=== PATIENT | female | born 1975 | race Two or more races ===

== ENCOUNTER 2021-12-24 08:22 | Emergency (ER) | payer MEDICAID, OTHER ==
[~2021-12-24] VITALS: Ht 134.6 cm; Wt 67.1 kg
[2021-12-24 08:52] VITALS: BP 150/74
[2021-12-24] MEDS ORDERED: IBUP800T27 PO (10:06)
[2021-12-24] MEDS ORDERED: KETOROLAC TROMETH 60MG/2ML VIAL IM ONE (10:15)
== END 2021-12-24 10:48 | disposition home or self-care (01) ==
LOC: ER 08:22
DX: M17.12 Unilateral primary osteoarthritis, left knee (principal); Z79.1 Long term (current) use of non-steroidal anti-inflammatories (NSAID)
CPT/HCPCS: 73562; 96372; 99283; J1885

== ENCOUNTER 2024-02-11 22:15 | Emergency (ER) | payer MEDICAID ==
[~2024-02-11] VITALS: Ht 152.4 cm; Wt 68.9 kg
[~2024-02-11 22:15] MED LIST: IBUP-1456 PO
[2024-02-11 22:44] LABS: Urine Bacteria None Seen /hpf (None Seen)
[2024-02-11] MEDS: KETOROLAC TROMETH 60MG/2ML VIAL IM ONE (23:17)
[2024-02-11 23:22] VITALS: BP 159/66; PULSE 71; RESP 19; TEMP 98.8; O2SAT 99
[2024-02-11] MEDS: ONDANSETRON HCL 4 MG/2 ML VIAL IM ONE (23:25)
[2024-02-11 23:28] LABS: Basophils # (auto) 0.1 10 ^3/uL (0-0.2); Basophils % (auto) 0.8 % (0.0-2.0); Eosinophils # (auto) 0 10 ^3/uL (0-0.8); Hematocrit 34.7 % (36.0-46.0); Hemoglobin 11.7 g/dL (12.2-16.2); Lymphocytes # (auto) 3.2 10 ^3/uL (0.4-5.4); Lymphocytes % (auto) 21.2 % (10.0-50.0); Mean Corpuscular Hemoglobin 31.2 pg (28.0-32.0); Mean Corpuscular Hgb Conc. 33.8 g/dL (32.0-36.0); Mean Corpuscular Volume 92.6 fL (80.0-100.0); Monocytes % (auto) 6.9 % (0.0-12.0); Neutrophils # (auto) 10.8 10 ^3/uL (1.6-8.6); Neutrophils % (auto) 71.1 % (37.0-80.0); Red Blood Cells 3.75 10^6/uL (4.0-5.20); Red Cell Distribution Width 12.7 % (11.8-14.3); White Blood Cell 15.2 10^3/uL (4.4-10.8)
[2024-02-11 23:30] LABS: Alanine Aminotransferase 29 U/L (7-40); Albumin 4.5 g/dL (3.2-4.8); Alkaline Phosphatase 72 U/L (46-116); Anion Gap 9 (5-15); Aspartate Aminotransferase 20 U/L (13-40); BUN/Creatinine Ratio 17.1 (10.0-20.0); Bilirubin, Total 0.3 mg/dL (0.2-1.0); Blood Urea Nitrogen 12 mg/dL (9-23); Calcium 8.6 mg/dL (8.7-10.4); Carbon Dioxide 25 mmol/L (20-30); Chloride 107 mmol/L (98-107); Glucose 107 mg/dL (74-106); Lipase 37 U/L (12-53); Potassium 4.2 mmol/L (3.5-5.1); Sodium 141 mmol/L (136-145); Total Protein 6.9 g/dL (5.7-8.2)
[2024-02-11 23:54] LABS: Urine Blood Negative /uL (Negative); Urine Clarity Clear (Clear); Urine Color Light-Yellow (Yellow); Urine Protein, UAD Negative (Negative); Urine Specific Gravity 1.013 (1.001-1.035); Urine Urobilinogen Normal (Negative); Urine WBC <1 /hpf (0 - 5); Urine pH 6.5 (5.0-9.0)
[2024-02-12] MEDS ORDERED: PANT40TA2 PO (00:54)
== END 2024-02-12 01:15 | disposition home or self-care (01) ==
LOC: ER 22:15
DX: K29.70 Gastritis, unspecified, without bleeding (principal)
CPT/HCPCS: 36415; 74176; 80053; 81001; 83690; 85025; 96372; 99285; J1885; J2405

== ENCOUNTER 2024-04-16 07:38 | Inpatient (IN) | payer MEDICAID ==
[~2024-04-16] VITALS: Ht 152.4 cm; Wt 76.9 kg
[~2024-04-16 07:38] MED LIST changes: +PANT40TA2 PO
[2024-04-16 08:18] LABS: Urine Bacteria None Seen /hpf (None Seen)
[2024-04-16 08:24] LABS: Urine Blood TRACE /uL (Negative); Urine Clarity Clear (Clear); Urine Color Yellow (Yellow); Urine Protein, UAD Negative (Negative); Urine Specific Gravity 1.022 (1.001-1.035); Urine Urobilinogen Normal (Negative); Urine WBC <1 /hpf (0 - 5); Urine pH 5.5 (5.0-9.0)
[2024-04-16 08:52] LABS: Basophils # (auto) 0.1 10 ^3/uL (0-0.2); Basophils % (auto) 0.8 % (0.0-2.0); Eosinophils # (auto) 0 10 ^3/uL (0-0.8); Eosinophils % (auto) 0.2 % (0.0-7.0); Hematocrit 36.2 % (36.0-46.0); Hemoglobin 12.3 g/dL (12.2-16.2); Lymphocytes # (auto) 2.5 10 ^3/uL (0.4-5.4); Lymphocytes % (auto) 20.2 % (10.0-50.0); Mean Corpuscular Hemoglobin 30.3 pg (28.0-32.0); Mean Corpuscular Hgb Conc. 33.9 g/dL (32.0-36.0); Mean Corpuscular Volume 89.5 fL (80.0-100.0); Monocytes % (auto) 7.9 % (0.0-12.0); Neutrophils # (auto) 8.7 10 ^3/uL (1.6-8.6); Neutrophils % (auto) 70.9 % (37.0-80.0); Platelet Count (auto) 367 10^3/uL (140-450); Red Blood Cells 4.04 10^6/uL (4.0-5.20); Red Cell Distribution Width 12.5 % (11.8-14.3); White Blood Cell 12.2 10^3/uL (4.4-10.8)
[2024-04-16 09:00] LABS: Chloride 107 mmol/L (98-107); Sodium 139 mmol/L (136-145)
[2024-04-16 09:01] LABS: Anion Gap 8 (5-15); Calcium 9.2 mg/dL (8.7-10.4); Carbon Dioxide 24 mmol/L (20-31)
[2024-04-16 09:06] LABS: BUN/Creatinine Ratio 21.1 (10.0-20.0); Blood Urea Nitrogen 15 mg/dL (9-23); Glucose 82 mg/dL (74-106)
[2024-04-16] MEDS: SODIUM CHLORIDE 0.9% 1,000 ML IV ONE (09:15)
[2024-04-16 09:50] VITALS: PULSE 71; RESP 16; O2SAT 100
[2024-04-16] MEDS: LIDOCAINE VISCOUS 2% 15ML UD PO ONE (10:29)
[2024-04-16] MEDS: DONNATAL 5ml ORAL Elix (BELLADONNA ALK-PHENOBARB) PO ONE (10:29)
[2024-04-16] MEDS: MAALOX PLUS or MAALOX 30 ML ONE (10:30)
[2024-04-16] MEDS: MAALOX PLUS or MAALOX 30 ML PO ONE (10:30)
[2024-04-16] MEDS: DONNATAL 5ml ORAL Elix (BELLADONNA ALK-PHENOBARB) ONE (10:30)
[2024-04-16] MEDS: LIDOCAINE VISCOUS 2% 15ML UD ONE (10:30)
[2024-04-16] MEDS ORDERED: MORPHINE SULFATE INJ 2 MG/ml SYRG IV PRN ×2 (11:15→21:30)
[2024-04-16] MEDS ORDERED: hydrALAZINE HCL 20 MG/ML VL IV PRN (12:15)
[2024-04-16] MEDS: ONDANSETRON HCL 4 MG/2 ML VIAL IV PRN (12:16)
[2024-04-16] MEDS: HYDROcodone-ACET 5/325MG TAB PO PRN ×2 (12:16→21:29)
[2024-04-16] MEDS: PANTOPRAZOLE 40 MG/10 ML VIAL INJ IV SCH (12:16)
[2024-04-16] MEDS: LISINOPRIL 5 MG TAB PO SCH (13:36)
[2024-04-16 22:00] VITALS: PULSE 75; RESP 16; O2SAT 100
[2024-04-16 23:43] VITALS: BP 160/78; PULSE 78; RESP 17; TEMP 97.8; O2SAT 99
[2024-04-16 23:45] VITALS: BP 160/78; PULSE 78; RESP 17; TEMP 97.8; O2SAT 99
[2024-04-16] MEDS: hydrALAZINE HCL 20 MG/ML VL IV PRN (23:50)
[2024-04-17] VITALS (10 sets, daily range): BP systolic 114–155; BP diastolic 52–86; PULSE 65–98; RESP 17–20; TEMP 97.9–98.7; O2SAT 97–100
[2024-04-17] MEDS: ONDANSETRON HCL 4 MG/2 ML VIAL IV PRN (00:55)
[2024-04-17 07:18] LABS: Basophils # (auto) 0.1 10 ^3/uL (0-0.2); Basophils % (auto) 0.6 % (0.0-2.0); Eosinophils # (auto) 0 10 ^3/uL (0-0.8); Eosinophils % (auto) 0.6 % (0.0-7.0); Hematocrit 34.1 % (36.0-46.0); Hemoglobin 11.7 g/dL (12.2-16.2); Lymphocytes # (auto) 3.1 10 ^3/uL (0.4-5.4); Lymphocytes % (auto) 36.2 % (10.0-50.0); Mean Corpuscular Hgb Conc. 34.3 g/dL (32.0-36.0); Mean Corpuscular Volume 90.3 fL (80.0-100.0); Monocytes # (auto) 0.6 10 ^3/uL (0-1.3); Monocytes % (auto) 7.5 % (0.0-12.0); Neutrophils # (auto) 4.7 10 ^3/uL (1.6-8.6); Neutrophils % (auto) 55.1 % (37.0-80.0); Nucleated Red Blood Cells % 0.1 %; Platelet Count (auto) 317 10^3/uL (140-450); Red Blood Cells 3.77 10^6/uL (4.0-5.20); Red Cell Distribution Width 12.5 % (11.8-14.3); White Blood Cell 8.5 10^3/uL (4.4-10.8)
[2024-04-17 07:30] LABS: Anion Gap 6 (5-15); Carbon Dioxide 26 mmol/L (20-31); Chloride 107 mmol/L (98-107); Potassium 3.9 mmol/L (3.5-5.1); Sodium 139 mmol/L (136-145)
[2024-04-17 07:31] LABS: Calcium 9.2 mg/dL (8.7-10.4)
[2024-04-17 07:35] LABS: Glucose 86 mg/dL (74-106)
[2024-04-17 07:36] LABS: BUN/Creatinine Ratio 15.8 (10.0-20.0); Blood Urea Nitrogen 12 mg/dL (9-23)
[2024-04-17] MEDS: PANTOPRAZOLE 40 MG/10 ML VIAL INJ IV SCH (11:06)
[2024-04-17] MEDS: LISINOPRIL 5 MG TAB PO SCH (11:08)
[2024-04-17] MEDS: ACETAMINOPHEN 325 MG TAB PO PRN (12:28)
[2024-04-18 01:00] VITALS: BP_SYST 134; BP_SYST 166; BP_DIAS 67; BP_DIAS 71; PULSE 61; PULSE 77; RESP 20; TEMP 98.1; TEMP 98.3; O2SAT 100; O2SAT 97
[2024-04-18 05:00] VITALS: BP 109/57; PULSE 75; RESP 22; TEMP 97.7; O2SAT 100
[2024-04-18 07:38] LABS: Basophils # (auto) 0 10 ^3/uL (0-0.2); Basophils % (auto) 0.6 % (0.0-2.0); Eosinophils # (auto) 0.1 10 ^3/uL (0-0.8); Eosinophils % (auto) 0.9 % (0.0-7.0); Hemoglobin 12.4 g/dL (12.2-16.2); Lymphocytes # (auto) 2.7 10 ^3/uL (0.4-5.4); Lymphocytes % (auto) 40.3 % (10.0-50.0); Mean Corpuscular Hemoglobin 31.4 pg (28.0-32.0); Mean Corpuscular Hgb Conc. 34.5 g/dL (32.0-36.0); Mean Corpuscular Volume 90.9 fL (80.0-100.0); Monocytes # (auto) 0.5 10 ^3/uL (0-1.3); Monocytes % (auto) 7.3 % (0.0-12.0); Neutrophils # (auto) 3.4 10 ^3/uL (1.6-8.6); Neutrophils % (auto) 50.9 % (37.0-80.0); Nucleated Red Blood Cells % 0.1 %; Platelet Count (auto) 345 10^3/uL (140-450); Red Blood Cells 3.97 10^6/uL (4.0-5.20); Red Cell Distribution Width 12.3 % (11.8-14.3); White Blood Cell 6.8 10^3/uL (4.4-10.8)
[2024-04-18 07:49] LABS: Alanine Aminotransferase 21 U/L (7-40); Alkaline Phosphatase 80 U/L (46-116); Anion Gap 7 (5-15); BUN/Creatinine Ratio 12.2 (10.0-20.0); Blood Urea Nitrogen 10 mg/dL (9-23); Calcium 9.7 mg/dL (8.7-10.4); Carbon Dioxide 24 mmol/L (20-31); Chloride 109 mmol/L (98-107); Glucose 84 mg/dL (74-106); Potassium 3.9 mmol/L (3.5-5.1); Sodium 140 mmol/L (136-145)
[2024-04-18 07:50] LABS: Albumin 4.3 g/dL (3.2-4.8); Aspartate Aminotransferase 12 U/L (13-40); Bilirubin, Total 0.6 mg/dL (0.2-1.0); Total Protein 6.8 g/dL (5.7-8.2)
[2024-04-18 08:00] VITALS: PULSE 76; RESP 20; O2SAT 98
[2024-04-18] MEDS: LISINOPRIL 5 MG TAB PO SCH (08:38)
[2024-04-18 09:00] VITALS: BP 111/55; PULSE 52; RESP 16; TEMP 98.2; O2SAT 99
[2024-04-18] MEDS ORDERED: SUCR1TAB PO (14:00)
[2024-04-18] MEDS ORDERED: PANT40TA2 PO (14:00)
[2024-04-18 14:27] VITALS: BP 105/64; PULSE 87; RESP 16; TEMP 97.6; O2SAT 97
== END 2024-04-18 16:00 | disposition home or self-care (01) | DRG 241 ==
LOC: ER 07:38 → OVERFLOW 11:13 → CENTRAL 11:21
PROVIDERS: ADMIT Internal Medicine Geriatric Medicine; ATTEND Emergency Medicine
DX: K29.00 Acute gastritis without bleeding (principal); I10 Essential (primary) hypertension; I16.0 Hypertensive urgency; Z79.1 Long term (current) use of non-steroidal anti-inflammatories (NSAID); Z79.899 Other long term (current) drug therapy
CPT/HCPCS: 36415; 74176; 80048; 80053; 81001; 83690; 85025; 96374; G0378; J2405; J2470

== ENCOUNTER 2024-05-31 07:19 | Emergency (ER) | payer MEDICAID ==
[~2024-05-31] VITALS: Ht 152.4 cm; Wt 67.6 kg
[~2024-05-31 07:19] MED LIST changes: +SUCR1TAB PO
--- NOTE | 2024-05-31 07:51 | ED.PDOC ---
Musculoskeletal HPI Comments 48 Y F, presents to the ED with CC of right shoulder pain. Patient reports that she has been experiencing right shoulder pain and tingling which radiates down her right arm x1 wk. Patient relays that she has taken over the counter pain medications but nothing seems to help. Patient also reports that she has rash like hives on both hands which appeared on her hands on 05/29/24, which she believes are in association with her pain. Patient denies any chills, fever, cough and N/V/D. Chief Complaint: Upper Extremity Time Seen by MD: 07:20 Primary Care Provider: NONE Reviewed Notes: Nurses Notes, Medications, Allergies Allergies: Coded Allergies: NO KNOWN ALLERGIES (Unverified , 12/24/21) Home Meds Active Scripts Sucralfate (Sucralfate) 1 Gm Tab, 1 GM PO BID for 15 Days, #30 TAB Prov:ALMA DELIA SANTA RESIDENT 04/18/24 Pantoprazole Sodium Sesquihydr (Protonix) 40 Mg Tab, 40 MG PO DAILY for 30 Days, #30 TAB Prov:ALMA DELIA SANTA RESIDENT 04/18/24 Pantoprazole Sodium Sesquihydr (Protonix) 40 Mg Tab, 40 MG PO DAILY, #30 TAB Prov:ZENY HERNANDEZ MD 02/12/24 Ibuprofen (Ibuprofen) 800 Mg Tab, 1 TAB PO Q6HPRN PRN, #30 TAB 0 Refills Prov:RAYMUNDO MEJÍA 12/24/21 Information Source: Patient Mode of Arrival: Ambulatory Location: Right Extremity Location: Arm Timing: Weeks Severity: Mild Bear Weight: Limited Pain: Mild Onset of Symptoms: Spontaneous Symptoms: Pain Associated signs and symptoms: Shoulder pain, Arm pain, Wrist pain Past Medical History PAST MEDICAL HISTORY: Denies Surgical History: Denies all surgeries BOX STRAPPER History: Denies all BOX 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 Hx Family History Family History: Reviewed,noncontributory to illness, Unknown Social History Smoker: Non-Smoker Alcohol: Denies ETOH Use Drugs: Denies Drug Use Lives In: Home Constitutional: denies: chills, diaphoresis, fatigue, fever, malaise, sweats, weakness, others EENTM: denies: blurred vision, double vision, ear bleeding, ear discharge, ear drainage, ear pain, ear ringing, eye pain, eye redness, hearing loss, mouth pain, mouth swelling, nasal discharge, nose bleeding, nose congestion, nose pain, photophobia, tearing, throat pain, throat swelling, voice changes, others Respiratory: denies: cough, hemoptysis, orthopnea, SOB at rest, shortness of breath, SOB with excertion, stridor, wheezing, others Cardiovascular: denies: chest pain, dizzy spells, diaphoresis, Dyspnea on exertion, edema, irregular heart beat, left arm pain, lightheadedness, palpitations, PND, syncope, others Gastrointestinal: denies: abdomen distended, abdominal pain, blood streaked bowels, constipated, diarrhea, dysphagia, difficulty swallowing, hematemesis, melena, nausea, poor appetite, poor fluid intake, rectal bleeding, rectal pain, vomiting, others Genitourinary: denies: abnormal vagina bleeding, burning, dyspareunia, dysuria, flank pain, frequency, hematuria, incontinence, pain, , vagina discharge, urgency, others Neurological: denies: dizziness, fainting, headache, left sided numbness, left sided weakness, numbness, paresthesia, pre-existing deficit, right sided numbness, right sided weakness, seizure, speech problems, tingling, tremors, weakness, others Musculoskeletal: reports: neck pain, others (R shoulder pain); denies: back pain, gout, joint pain, joint swelling, muscle pain, muscle stiffness Integumetry: denies: bruises, change in color, change in hair/nails, dryness, laceration, lesions, lumps, rash, wounds, others Allergic/Immunocompromised: denies: Difficulty Healing, Frequent Infections, Hives, Itching, others Hematologic/Lymphatic: denies: anemia, blood clots, easy bleeding, easy bruising, swollen glands, others Endocrine: denies: excessive hunger, excessive sweating, excessive thirst, excessive urination, flushing, intolerance to cold, intolerance to heat, unexplained weight gain, unexplained weight loss, others Psychiatric: denies: anxiety, bipolar disorder, depression, hopeless, panic disorder, schizophrenia, sleepless, suicidal, others All Other Systems: Reviewed and Negative Physical Exam General Appearance: No Apparent Distress, Normal HEENT: Normal ENT Inspection, Pharynx Normal, TMs Normal Neck: Full Range of Motion, Non-Tender, Normal, Normal Inspection Respiratory: Chest Non-Tender, Lungs Clear, No Accessory Muscle Use, No Respiratory Distress, Normal Breath Sounds Cardiovascular: No Edema, No JVD, No Murmur, No Gallop, Normal Peripheral Pulses, Regular Rate/Rhythm Breast Exam: Deferred Gastrointestinal: No Organomegaly, Non Tender, No Pulsatile Mass, Normal Bowel Sounds, Soft Genitalia: Deferred Pelvic: Deferred Rectal: Deferred Extremities: No calf tenderness, Normal capillary refill, Normal inspection, Normal range of motion, Non-tender, No pedal edema Musculoskeletal : Location: Right Extremity Location: Shoulder Apperance: Normal, Other (No focal tenderness to palpation, no crepitus, strength intact.) Neurologic: Alert, animal geneticist II-XII nml as Tested, No Motor Deficits, Normal Affect, Normal Mood, No Sensory Deficits Cerebellar Function: Normal Reflexes: Normal Skin: Dry, Normal Color, Warm Lymphatic: No Adenopathy Was a procedure done? Was a procedure done?: No Differential Diagnosis EXT Differential Diagnosis: Sprain, Contusion, Strain X-Ray, Labs, Meds, VS Vital Signs Date Time Temp Pulse Resp B/P (MAP) Pulse Ox O2 Delivery O2 Flow Rate FiO2 05/31/24 07:34 98.3 99 18 158/57 (90) 100 Rt Shoulder XR: There is no evidence of acute fracture or dislocation. The visualized joint space is well maintained. The alignment is anatomical. There is no radiopaque foreign body. C-Spine XR: FINDINGS: The cervical vertebral alignment is normal. The predental space is normal. The intervertebral disc spaces are well-maintained. No significant facet arthropathy is noted. No acute fracture, vertebral compression deformity or aggressive osseous lesions. The imaged lung apices are unremarkable. IMPRESSION: No acute fracture. Images Reviewed?: Images reviewed and evaluated by me Time of 1ST Reevaluation: 08:20 Reevaluation 1ST: Unchanged Patient Education/Counseling: Diagnosis, Treatment Family Education/Counseling: No Family Present Departure 1 Departure Time of Disposition: 09:49 Impression: Primary Impression: Right shoulder pain Disposition: 01 HOME / SELF CARE / HOMELESS Condition: Stable Discharged With: Self Critical Care Note Critical Care Time?: No Stability Stability form required: No Heart Score Heart Score: Heart Score Response (Comments) Value History N/A 0 EKG N/A 0 Age N/A 0 Risk Factors N/A 0 Troponin N/A 0 Total 0 I personally scribed for HENRY TRUJILLO MD ([email or web address]) on 05/31/24 at 07:51. Electronically submitted by Maribel Guerra ([email or web address]). I personally scribed for HENRY TRUJILLO MD ([email or web address]) on 05/31/24 at 08:43. Electronically submitted by Jose Mckinney ([email or web address]). HENRY TRUJILLO MD May 31, 2024 07:51
--- NOTE | 2024-05-31 08:28 | DVH ---
INDICATION: RIGHT ARM PAIN COMPARISON: None TECHNIQUE: 3 views of the cervical spine were obtained. FINDINGS: The cervical vertebral alignment is normal. The predental space is normal. The intervertebral disc spaces are well-maintained. No significant facet arthropathy is noted. No acute fracture, vertebral compression deformity or aggressive osseous lesions. The imaged lung apices are unremarkable. IMPRESSION: No acute fracture.
--- NOTE | 2024-05-31 08:29 | DVH ---
CLINICAL INDICATION: r arm pain and numbness TECHNIQUE: XY R SHOULDER 2+ VIEW XRAY Comparison: None FINDINGS/IMPRESSION: There is no evidence of acute fracture or dislocation. The visualized joint space is well maintained. The alignment is anatomical. There is no radiopaque foreign body.
[2024-05-31 10:01] VITALS: BP 147/84; PULSE 83; RESP 18; TEMP 98; O2SAT 100
== END 2024-05-31 10:00 | disposition home or self-care (01) ==
LOC: ER 07:19
DX: M25.511 Pain in right shoulder (principal); Z79.899 Other long term (current) drug therapy
CPT/HCPCS: 72040; 73030

== ENCOUNTER 2024-06-05 07:39 | Emergency (ER) | payer MEDICAID ==
[~2024-06-05] VITALS: Ht 152.4 cm; Wt 67.3 kg
[2024-06-05 08:04] VITALS: BP 174/103; PULSE 100; RESP 16; TEMP 98.3; O2SAT 98
--- NOTE | 2024-06-05 08:30 | ED.PDOC ---
History of Present Illness(SKN HPI Comments 48-year-old female with a history of hypertension presents with a chief complaint of a skin rash to the bilateral upper extremities x2 weeks. Onset started on the dorsal aspect of the right hand and patient reports rash has a scended up the arm and onto the left upper extremities well. Symptoms associated with itchiness and dryness. Has tried [id number] Benadryl with minimal improvement. Up-to-date on vaccines Denies ever having this before Patient denies any fever, cough, difficulty swallowing, or shortness of breath Denies fever chills night sweats nausea vomiting diarrhea Denies persistent loss of appetite nor unintentional weight loss over the past 3 months Denies history of STI Denies cough and cold-like symptoms Denies recent travel Denies sick contact with similar rash Denies new topical creams/lotions/shampoos/detergents Denies noticing any insects Denies bruising bleeding anywhere Denies chronic skin issues or family history of skin issues Chief Complaint: Rash Time Seen by MD: 07:55 Primary Care Provider: none History of Present Illness: Nurses Notes, Medications, Allergies Allergies: Coded Allergies: NO KNOWN ALLERGIES (Unverified , 12/24/21) Home Meds Active Scripts Triamcinolone Acetonide (Triamcinolone Acetonide) 0.1 % Cre, 1 APPLIC EX DAILY for 5 Days, #60 CRE 0 Refills Prov:JOSSUE SHIRLEY NP 06/05/24 Prednisone (Prednisone) 20 Mg Tab, 40 MG PO DAILY for 5 Days, #10 TAB 0 Refills Prov:JOSSUE SHIRLEY NP 06/05/24 Sucralfate (Sucralfate) 1 Gm Tab, 1 GM PO BID for 15 Days, #30 TAB Prov:ALMA DELIA SANTA RESIDENT 04/18/24 Pantoprazole Sodium Sesquihydr (Protonix) 40 Mg Tab, 40 MG PO DAILY for 30 Days, #30 TAB Prov:ALMA DELIA SANTA RESIDENT 04/18/24 Pantoprazole Sodium Sesquihydr (Protonix) 40 Mg Tab, 40 MG PO DAILY, #30 TAB Prov:ZENY HERNANDEZ MD 02/12/24 Ibuprofen (Ibuprofen) 800 Mg Tab, 1 TAB PO Q6HPRN PRN, #30 TAB 0 Refills Prov:RAYMUNDO MEJÍA 12/24/21 Information Source: Patient Mode of Arrival: Ambulatory Past Medical History PAST MEDICAL HISTORY: Denies Surgical History: Denies all surgeries LABOUR MARKET ECONOMIST History: Denies all LABOUR MARKET ECONOMIST Hx Family History Family History: Reviewed,noncontributory to illness, Unknown Social History Smoker: Non-Smoker Alcohol: Denies ETOH Use Drugs: Denies Drug Use Lives In: Home All Other Systems: Reviewed and Negative (Per HPI) Physical Exam General Appearance: No Apparent Distress, Normal HEENT: Normal ENT Inspection, Pharynx Normal, TMs Normal Neck: Full Range of Motion, Non-Tender, Normal, Normal Inspection Respiratory: Chest Non-Tender, Lungs Clear, No Accessory Muscle Use, No Respiratory Distress, Normal Breath Sounds Cardiovascular: No Edema, No JVD, No Murmur, No Gallop, Normal Peripheral Pulses, Regular Rate/Rhythm Breast Exam: Deferred Gastrointestinal: No Organomegaly, Non Tender, No Pulsatile Mass, Normal Bowel Sounds, Soft Genitalia: Deferred Pelvic: Deferred Rectal: Deferred Extremities: No calf tenderness, Normal capillary refill, Normal inspection, Normal range of motion, Non-tender, No pedal edema Musculoskeletal : Apperance: Normal Neurologic: Alert, student counsellor II-XII nml as Tested, No Motor Deficits, Normal Affect, Normal Mood, No Sensory Deficits Cerebellar Function: Normal Reflexes: Normal Skin: Dry, Normal Color, Warm Lymphatic: No Adenopathy Was a procedure done? Was a procedure done?: No Images 1 - Erythematous papular rash. No swelling to palpation. No crepitus on palpation. Differential Diagnosis (INTG) Differential Diagnosis: Urticaria X-Ray, Labs, Meds, VS Vital Signs Date Time Temp Pulse Resp B/P (MAP) Pulse Ox O2 Delivery O2 Flow Rate FiO2 06/05/24 08:04 98.3 100 16 174/103 (126) 98 98.3 06/05/24 08:04 100 16 98 Room Air 06/05/24 07:51 98.3 100 16 174/103 (126) 98 Lab Test 06/05/24 08:49 Range/Units White Blood Count 11.6 H 4.4-10.8 10^3/uL Red Blood Count 4.07 4.0-5.20 10^6/uL Hemoglobin 12.2 12.2-16.2 g/dL Hematocrit 36.6 36.0-46.0 % Mean Corpuscular Volume 89.9 80.0-100.0 fL Mean Corpuscular Hemoglobin 29.9 28.0-32.0 pg Mean Corpuscular Hemoglobin Concent 33.3 32.0-36.0 g/dL Red Cell Distribution Width 12.9 11.8-14.3 % Platelet Count 332 140-450 10^3/uL Mean Platelet Volume 8.5 6.9-10.8 fL Neutrophils (%) (Auto) 76.6 37.0-80.0 % Lymphocytes (%) (Auto) 14.2 10.0-50.0 % Monocytes (%) (Auto) 8.1 0.0-12.0 % Eosinophils (%) (Auto) 0.5 0.0-7.0 % Basophils (%) (Auto) 0.6 0.0-2.0 % Neutrophils # (Auto) 8.9 H 1.6-8.6 10 ^3/uL Lymphocytes # (Auto) 1.7 0.4-5.4 10 ^3/uL Monocytes # (Auto) 0.9 0-1.3 10 ^3/uL Eosinophils # (Auto) 0.1 0-0.8 10 ^3/uL Basophils # (Auto) 0.1 0-0.2 10 ^3/uL Nucleated Red Blood Cells 0.1 % Sodium Level 141 136-145 mmol/L Potassium Level 4.0 3.5-5.1 mmol/L Chloride Level 108 H 98-107 mmol/L Carbon Dioxide Level 23 20-31 mmol/L Anion Gap 10 5-15 Blood Urea Nitrogen 9 9-23 mg/dL Creatinine 0.71 0.550-1.02 mg/dL Glomerular Filtration Rate Calc 106 >90 mL/min BUN/Creatinine Ratio 12.7 10.0-20.0 Serum Glucose 84 74-106 mg/dL Calcium Level 9.4 8.7-10.4 mg/dL X-Ray, Labs, Meds, VS Comment This is a pleasant 48-year-old female with a history of hypertension that presents with a chief complaint of a skin rash to the bilateral upper extremities x2 weeks. After review of systems physical examination, patient is nontoxic non ill-appearing. Rash is suggestive of urticaria. Differentials considered but not limited to chronic urticaria, contact dermatitis, dermatitis, shingles Labs ordered to rule out serious pathology. On reevaluation, patient had symptomatic improvement. Patient is stable for discharge at this time. External notes reviewed. Test results and diagnostic imaging interpreted. All diagnostic findings, discharge care, education and instructions provided Follow-up with PCP in 2 to 3 days Patient verbalized understanding and agreed to treatment plan Vital signs stable, afebrile, no acute distress noted Patient ambulatory with strong steady gait Advised to return precautions for any new or worsening symptoms, return to ER immediately for re-evaluation Patient is aware that the purpose of this visit was for an acute medical emergency requiring emergent stabilization. Chronic conditions, including malignancies have not been ruled out. Patient is instructed to follow up with PCP as directed and discharge instructions for continued care and workup. If unable to arrange follow-up, patient is to return to the emergency department for reassessment. Patient (parent or legal guardian if applicable) was given verbal and written discharge instructions and acknowledges understanding. Time of 1ST Reevaluation: 08:29 Reevaluation 1ST: Improved Patient Education/Counseling: Diagnosis, Treatment Family Education/Counseling: Diagnosis, Treatment Departure 1 Departure Time of Disposition: 10:08 Impression: Primary Impression: Dermatitis Additional Impression: Acute urticaria Disposition: HOME / SELF CARE / HOMELESS Condition: Stable e-Prescriptions Triamcinolone Acetonide (Triamcinolone Acetonide) 0.1 % Cre 1 APPLIC EX DAILY for 5 Days, #60 CRE 0 Refills Prov: JOSSUE SHIRLEY NP 06/05/24 Prednisone (Prednisone) 20 Mg Tab 40 MG PO DAILY for 5 Days, #10 TAB 0 Refills Prov: JOSSUE SHIRLEY NP 06/05/24 Discharged With: Self Critical Care Note Critical Care Time?: No Stability Stability form required: No Heart Score Heart Score: Heart Score Response (Comments) Value History N/A 0 EKG N/A 0 Age N/A 0 Risk Factors N/A 0 Troponin N/A 0 Total 0 JOSSUE SHIRLEY NP Jun 05, 2024 08:30
[2024-06-05 09:45] LABS: Basophils # (auto) 0.1 10 ^3/uL (0-0.2); Basophils % (auto) 0.6 % (0.0-2.0); Eosinophils # (auto) 0.1 10 ^3/uL (0-0.8); Eosinophils % (auto) 0.5 % (0.0-7.0); Hematocrit 36.6 % (36.0-46.0); Hemoglobin 12.2 g/dL (12.2-16.2); Lymphocytes # (auto) 1.7 10 ^3/uL (0.4-5.4); Lymphocytes % (auto) 14.2 % (10.0-50.0); Mean Corpuscular Hemoglobin 29.9 pg (28.0-32.0); Mean Corpuscular Hgb Conc. 33.3 g/dL (32.0-36.0); Mean Corpuscular Volume 89.9 fL (80.0-100.0); Monocytes # (auto) 0.9 10 ^3/uL (0-1.3); Monocytes % (auto) 8.1 % (0.0-12.0); Neutrophils # (auto) 8.9 10 ^3/uL (1.6-8.6); Neutrophils % (auto) 76.6 % (37.0-80.0); Nucleated Red Blood Cells % 0.1 %; Platelet Count (auto) 332 10^3/uL (140-450); Red Blood Cells 4.07 10^6/uL (4.0-5.20); Red Cell Distribution Width 12.9 % (11.8-14.3); White Blood Cell 11.6 10^3/uL (4.4-10.8)
[2024-06-05 09:49] LABS: Sodium 141 mmol/L (136-145)
[2024-06-05 09:50] LABS: Anion Gap 10 (5-15); Calcium 9.4 mg/dL (8.7-10.4); Carbon Dioxide 23 mmol/L (20-31)
[2024-06-05 09:55] LABS: BUN/Creatinine Ratio 12.7 (10.0-20.0); Blood Urea Nitrogen 9 mg/dL (9-23); Glucose 84 mg/dL (74-106)
[2024-06-05 09:58] LABS: Chloride 108 mmol/L (98-107)
[2024-06-05] MEDS ORDERED: PRED20TA2 PO (10:09)
[2024-06-05] MEDS ORDERED: TRIO1TP EX (10:09)
== END 2024-06-05 10:09 | disposition home or self-care (01) ==
LOC: ER 07:39
DX: L50.9 Urticaria, unspecified (principal); L30.9 Dermatitis, unspecified; I10 Essential (primary) hypertension; Z79.52 Long term (current) use of systemic steroids; Z79.899 Other long term (current) drug therapy
CPT/HCPCS: 36415; 80048; 85025

== ENCOUNTER → 2024-07-19 | Outpatient (CLI) | payer MEDICAID ==
[~2024-07-19] MED LIST changes: +PRED20TA2 PO; +TRIO1TP EX
[2024-07-19 10:16] LABS: Urine Bacteria None Seen /hpf (None Seen)
[2024-07-19 11:21] LABS: Basophils # (auto) 0.1 10 ^3/uL (0-0.2); Basophils % (auto) 0.8 % (0.0-2.0); Eosinophils # (auto) 0 10 ^3/uL (0-0.8); Eosinophils % (auto) 0.5 % (0.0-7.0); Hematocrit 34.3 % (36.0-46.0); Hemoglobin 11.9 g/dL (12.2-16.2); Lymphocytes # (auto) 2.7 10 ^3/uL (0.4-5.4); Lymphocytes % (auto) 39.4 % (10.0-50.0); Mean Corpuscular Hemoglobin 30.8 pg (28.0-32.0); Mean Corpuscular Hgb Conc. 34.8 g/dL (32.0-36.0); Mean Corpuscular Volume 88.6 fL (80.0-100.0); Monocytes # (auto) 0.6 10 ^3/uL (0-1.3); Monocytes % (auto) 8.6 % (0.0-12.0); Neutrophils # (auto) 3.5 10 ^3/uL (1.6-8.6); Neutrophils % (auto) 50.7 % (37.0-80.0); Nucleated Red Blood Cells % 0.1 %; Platelet Count (auto) 319 10^3/uL (140-450); Red Blood Cells 3.87 10^6/uL (4.0-5.20); Red Cell Distribution Width 13.2 % (11.8-14.3); White Blood Cell 6.9 10^3/uL (4.4-10.8)
[2024-07-19 11:28] LABS: % Iron Saturation 32.6 % (15-50)
[2024-07-19 11:30] LABS: Erythrocyte Sedimentation Rate 12 mm/hr (0-20)
[2024-07-19 11:36] LABS: Thyroid Stimulating Hormone 1.47 uIU/mL (0.55-4.78)
[2024-07-19 11:56] LABS: Urine Blood Negative /uL (Negative); Urine Clarity Clear (Clear); Urine Color Light-Yellow (Yellow); Urine Hyaline Cast FEW /lpf (0 - 2); Urine Mucus FEW (None Seen); Urine Protein, UAD Negative (Negative); Urine Specific Gravity 1.012 (1.001-1.035); Urine Squamous Epithelial Cell FEW /hpf (<5); Urine Urobilinogen Normal (Negative); Urine WBC < 1 /HPF (0-5); Urine pH 6.5 (5.0-9.0)
[2024-07-19 12:01] LABS: CRP High Sensitivity 0.09 mg/dL (<1.0)
[2024-07-19 12:35] LABS: Amphetamine Screen, Urine Neg (NEGATIVE); Barbiturate Scree,Urine Neg (NEGATIVE); Benzodiazephine Screen, Urine Neg (NEGATIVE); Cannabinoid Screen, Urine Neg (NEGATIVE); Cocaine Screen, Urine Neg (NEGATIVE); Opiate Scree,Urine Neg (NEGATIVE); Phencyclidine Screen, Urine Neg (NEGATIVE)
[2024-07-20 08:06] LABS: RPR Non Reactive (Non Reactive); Thyroid Peroxidase (TPO) Ab 16 IU/mL (0-34)
[2024-07-20 11:07] LABS: Anti-Nuclear Antibody Direct Negative (Negative); Anti-dsDNA Antibody <1 IU/mL (0-9); Antiscleroderma-70 Antibody <0.2 AI (0.0-0.9); Complement C3 138 mg/dL (82-167); RNP Antibody <0.2 AI (0.0-0.9); Rheumatoid Arthritis Factor <10.0 IU/mL (<14.0); Sjogren's Anti-SS-A Antibody <0.2 AI (0.0-0.9); Sjogren's Anti-SS-B Antibody <0.2 AI (0.0-0.9); Smith Antibody <0.2 AI (0.0-0.9)
[2024-07-21 09:49] LABS: Hepatitis A Ab IgM Negative; Hepatitis A Total Antibody Positive (Negative); Hepatitis B Core IgM Negative (Negative); Hepatitis B Core Total AB Negative (Negative); Hepatitis B Surface Antibody Negative (Negative); Hepatitis B Surface Antigen Negative (Negative); Hepatitis C Antibody Negative (Negative)
[2024-07-21 11:06] LABS: Chlamydia Trachomatis, NAA Negative (Negative); Neisseria gonorrhoeae, NAA Negative (Negative)
[2024-07-21 13:06] LABS: Actin (Smooth Muscle) Antibody 6 Units (0-19); Mitochondrial (M2) Antibody <20.0 Units (0.0-20.0)
[2024-07-22 03:06] LABS: Aldolase 5.6 U/L (3.3-10.3)
[2024-07-22 10:06] LABS: Antiparietal Cell Antibody 11.1 Units (0.0-20.0)
== END | disposition home or self-care (01) ==
LOC: LAB 09:50
PROVIDERS: ATTEND Internal Medicine
DX: I10 Essential (primary) hypertension (principal); K29.70 Gastritis, unspecified, without bleeding; R63.4 Abnormal weight loss; R21 Rash and other nonspecific skin eruption
CPT/HCPCS: 36415; 80061; 80074; 80307; 81001; 82085; 82306; 82550; 82607; 83036; 83540; 83550; 83615; 83735; 84443; 85025; 85652; 86141; 86160; 86225; 86235; 86376; 86431; 86592; 86703; 86704; 86706; 86708; 86803; 87340

== ENCOUNTER 2024-08-06 20:03 | Emergency (ER) | payer MEDICAID ==
[~2024-08-06] VITALS: Ht 152.4 cm; Wt 67.6 kg
--- NOTE | 2024-08-06 20:36 | ED.PDOC ---
GI ASSESSMENT HPI Comments 48-year-old female who came to ER for abdominal pain. Patient states for the past few days has been experiencing right flank pains, radiating down the right lower quadrant/right inguinal area. Patient does have complaining of urinary frequency, but denies any dysuria or gross hematuria. Denies any nausea or vomiting Chief Complaint: Abdominal pain Time Seen by MD: 20:34 Primary Care Provider: none Reviewed Notes: Nurses Notes Allergies: Coded Allergies: NO KNOWN ALLERGIES (Unverified , 12/24/21) Home Meds Active Scripts Triamcinolone Acetonide (Triamcinolone Acetonide) 0.1 % Cre, 1 APPLIC EX DAILY for 5 Days, #60 CRE 0 Refills Prov:JOSSUE SHIRLEY NP 06/05/24 Prednisone (Prednisone) 20 Mg Tab, 40 MG PO DAILY for 5 Days, #10 TAB 0 Refills Prov:JOSSUE SHIRLEY NP 06/05/24 Sucralfate (Sucralfate) 1 Gm Tab, 1 GM PO BID for 15 Days, #30 TAB Prov:ALMA DELIA SANTA 04/18/24 Pantoprazole Sodium Sesquihydr (Protonix) 40 Mg Tab, 40 MG PO DAILY for 30 Days, #30 TAB Prov:ALMA DELIA SANTA 04/18/24 Pantoprazole Sodium Sesquihydr (Protonix) 40 Mg Tab, 40 MG PO DAILY, #30 TAB Prov:ZENY HERNANDEZ MD 02/12/24 Ibuprofen (Ibuprofen) 800 Mg Tab, 1 TAB PO Q6HPRN PRN, #30 TAB 0 Refills Prov:RAYMUNDO MEJÍA 12/24/21 Information Source: Patient Mode of Arrival: Ambulatory Timing: Days Duration: Intermittent Prehospital treatment: None Quality: Sharp, Stabbing Vomitus: None Stool: Normal Recent: None Recent Hx of: Abdominal Surgery Pain Location: RLQ, Other (Right flank) Review of Systems REVIEW OF SYSTEMS: No fever, no chills, or fatigue HEENT: No sore throat, no earache, no congestion, no neck pain. Cardiac: No chest pain. No palpitations. Lungs: No shortness of breath, no cough. GI: No nausea, no vomiting, no diarrhea, no constipation, (+) abdominal pain : No dysuria,(+)frequency, or urgency. No hematuria (+) right flank pain. Musculoskeletal: No joint pain , no joint swelling, no extremity edema. Skin: No rash, no itching. Neuro: No headache, no dizziness, no weakness Vital Signs Vital Signs Date Time Temp Pulse Resp B/P (MAP) Pulse Ox O2 Delivery O2 Flow Rate FiO2 08/06/24 21:54 98.9 103 18 160/78 (105) 99 98.9 08/06/24 21:54 Room Air Physical Exam General: Awake, alert and oriented. No acute distress. Skin: Skin in warm, dry and intact. Appropriate color for ethnicity. Nailbeds pink with no cyanosis. HEENT: The head is normocephalic and atraumatic. Conjunctivae are clear without exudates or hemorrhage. Sclera is non-icteric. EOM are intact. No signs of nystagmus. Eyelids are normal in appearance without swelling or lesions. Oral mucosa is pink and moist Neck: The neck is supple with normal range of motion. No JVD. Cardiac: Heart rate and rhythm are normal. No murmurs, gallops, or rubs are auscultated. Respiratory: No signs of respiratory distress. Lung sounds are clear in all lobes bilaterally without rales, ronchi, or wheezes. Abdominal: Abdomen is soft, positive right lower quadrant tenderness. No worsening of abdominal pain with jumping up and down Bowel sounds are present and normoactive in all four quadrants. Extremities: Upper and lower extremities are atraumatic in appearance without deformity or edema. Neurological: The patient is awake, alert and oriented to person, place, and time with normal speech. Speech is clear. There is no facial asymmetry. Psychiatric: Appropriate mood and affect. Good judgement and insight. No visual or auditory hallucinations. Past Medical History PAST MEDICAL HISTORY: HTN Surgical History: Surgical History (Other): left knee surgery CAREER SERVICES OFFICER History: Denies all CAREER SERVICES OFFICER Hx Family History Family History: Reviewed,noncontributory to illness, Unknown Social History Smoker: Non-Smoker Alcohol: Denies ETOH Use Drugs: Denies Drug Use Lives In: Home Was a procedure done? Was a procedure done?: No GI differential Dx Differential Diagnosis: Appendicitis, Cholecystitis, Constipation, Diverticular disease, Gastritis/PUD, Gastroenteritis, Pancreatitis, Urinary Obstruction, UTI, Urolithiasis, Electrolyte Imbalance X-Ray, Labs, Meds, VS Vital Signs Date Time Temp Pulse Resp B/P (MAP) Pulse Ox O2 Delivery O2 Flow Rate FiO2 08/06/24 21:54 98.9 103 18 160/78 (105) 99 98.9 08/06/24 21:54 103 18 99 Room Air 08/06/24 20:20 98.0 107 18 167/81 (109) 100 Lab Test 08/06/24 20:45 08/06/24 20:33 Range/Units Urine Color Light-yellow Yellow Urine Clarity Clear Clear Urine pH 6.0 5.0-9.0 Urine Specific [place] 1.016 1.001-1.035 Urine Protein Negative Negative Urine Ketones Negative Negative Urine Blood Trace H Negative /uL Urine Nitrite Negative Negative Urine Bilirubin Negative Negative Urine Urobilinogen Normal Negative mg/dL Urine Leukocyte Esterase Negative Negative /uL Urine RBC 1 0 - 4 /hpf Urine Microscopic WBC 1 0-5 /HPF Urine Squamous Epithelial Cells Few <5 /hpf Urine Bacteria None seen None Seen /hpf Urine Mucus Few None Seen Urine Glucose Normal Normal mg/dL Urine Test Negative Negative White Blood Count 10.0 4.4-10.8 10^3/uL Red Blood Count 4.03 4.0-5.20 10^6/uL Hemoglobin 12.4 12.2-16.2 g/dL Hematocrit 35.1 L 36.0-46.0 % Mean Corpuscular Volume 87.0 80.0-100.0 fL Mean Corpuscular Hemoglobin 30.6 28.0-32.0 pg Mean Corpuscular Hemoglobin Concent 35.2 32.0-36.0 g/dL Red Cell Distribution Width 13.3 11.8-14.3 % Platelet Count 361 140-450 10^3/uL Mean Platelet Volume 8.4 6.9-10.8 fL Neutrophils (%) (Auto) 50.8 37.0-80.0 % Lymphocytes (%) (Auto) 42.1 10.0-50.0 % Monocytes (%) (Auto) 5.4 0.0-12.0 % Eosinophils (%) (Auto) 0.6 0.0-7.0 % Basophils (%) (Auto) 1.1 0.0-2.0 % Neutrophils # (Auto) 5.1 1.6-8.6 10 ^3/uL Lymphocytes # (Auto) 4.2 0.4-5.4 10 ^3/uL Monocytes # (Auto) 0.5 0-1.3 10 ^3/uL Eosinophils # (Auto) 0.1 0-0.8 10 ^3/uL Basophils # (Auto) 0.1 0-0.2 10 ^3/uL Nucleated Red Blood Cells 0.1 % Sodium Level 137 136-145 mmol/L Potassium Level 3.2 L 3.5-5.1 mmol/L Chloride Level 101 98-107 mmol/L Carbon Dioxide Level 25 20-31 mmol/L Anion Gap 11 5-15 Blood Urea Nitrogen 14 9-23 mg/dL Creatinine 0.72 0.550-1.02 mg/dL Glomerular Filtration Rate Calc 104 >90 mL/min BUN/Creatinine Ratio 19.4 10.0-20.0 Serum Glucose 99 74-106 mg/dL Lactic Acid Level 0.7 0.4-2.0 mmol/L Calcium Level 9.8 8.7-10.4 mg/dL Total Bilirubin 0.3 0.2-1.0 mg/dL Aspartate Amino Transferase (AST) 24 13-40 U/L Alanine Aminotransferase (ALT) 30 7-40 U/L Alkaline Phosphatase 128 H 46-116 U/L Total Protein 7.7 5.7-8.2 g/dL Albumin 5.2 H 3.2-4.8 g/dL Lipase 48 12-53 U/L Current Medications Medications (Trade) Dose Ordered Sig/Rohit Route Start Time Stop Time Status Last Admin Ketorolac Tromethamine (Toradol Injection) 30 mg ONCE ONCE IM 08/06/24 20:30 08/06/24 20:31 DC 08/06/24 21:47 Potassium Bicarbonate (Klor-Con/Ef) 50 meq ONCE ONCE PO 08/06/24 22:00 08/06/24 22:03 DC 08/06/24 22:08 Exam: CT CT AB PEL WO CON-NO ORAL OR IV History: Right flank pain Comparison Study: None available at time of dictation. TECHNIQUE: Multidetector CT of the abdomen was performed from lung bases to pubic symphysis. Imaging was performed without IV contrast. Axial, coronal and sagittal multiplanar reformats were obtained from the axial data set by the technologist. Radiation Dose Information: CT Dose: CTDI volume is 9.17 mGy. Dose-length product is 477.5 mGy*cm FINDINGS: Evaluation of solid organs is limited due to lack of intravenous contrast use. Findings: Lung Bases: No acute or significant lung base finding. Normal heart size. No pleural or pericardial effusion. Liver: The liver is normal in size. No focal lesions. Gallbladder and Biliary Tree: Unremarkable Spleen: Unremarkable Pancreas: The pancreas is grossly normal in appearance. Adrenal Glands: Unremarkable Kidneys: Kidneys are grossly normal without calculi or hydronephrosis. Bladder: Grossly unremarkable for degree of distention. Bowel: The stomach is grossly normal in appearance. Small bowel and colon are normal in caliber and distribution. The appendix is not visualized; however, no secondary findings of acute appendicitis identified. Ascites: Absent Lymphadenopathy: No mesenteric, retroperitoneal or periportal lymphadenopathy. Abdominal Wall and Mesentery: Unremarkable. Vasculature: The visualized abdominal aorta is normal in size and caliber. Evaluation of abdominal and pelvic vessels is limited due to lack of intravenous contrast. Pelvic Organs: Unremarkable Musculoskeletal: No aggressive focal bony lesions, acute fractures or dislocation. Soft tissues: Unremarkable IMPRESSION: 1. No nephrolithiasis or hydronephrosis on the right or left. 2. No bladder calculi. 3. No CT findings to suggest bowel obstruction. Large stool burden throughout the colon. PROCEDURE(s): RHIP - R HIP COMPLETE XRAY CLINICAL INDICATION: Right hip pain TECHNIQUE: XY R HIP COMPLETE XRAY Comparison: None FINDINGS: IMPRESSION: No osseous or joint abnormality with no fracture or dislocation. Joint space is normal. TRANSABDOMINAL PELVIC ULTRASOUND CLINICAL HISTORY: Right pelvic pain TECHNIQUE: Multiple grayscale ultrasound images were obtained of the pelvis via transabdominal approach. Limited color Doppler and spectral Doppler acquisitions were also obtained. COMPARISON: None FINDINGS: Uterus: 7.3 by 5.2 x 3.5 cm. The uterine contour is smooth. No myometrial masses are seen. Endometrium: 0.4 cm. No endometrial mass is seen. Right adnexa: right ovary 2.4 x 1.1 x 1.8 cm. Normal arterial blood flow in the ovary. No right adnexal mass seen. Left adnexa: left ovary 2.2 x 1.4 x 1.6 cm. Normal arterial blood flow in the ovary. No left adnexal mass seen. Other: None IMPRESSION: Unremarkable pelvic ultrasound. Time of 1ST Reevaluation: 20:30 Reevaluation 1ST: Unchanged Patient Education/Counseling: Diagnosis, Treatment Family Education/Counseling: Diagnosis, Treatment Departure 1 Departure Time of Disposition: 23:23 Impression: Primary Impression: Abdominal pain Disposition: 01 HOME / SELF CARE / HOMELESS Condition: Stable Additional Instructions: INSTRUCCIONES DE MARCIAL DE Urgencias Instrucciones: Yael atentamente todas las instrucciones proporcionadas en baudilio paquete. Aunque le hayan dado el marcial del Departamento de Emergencias, esto no significa que tenga un "certificado de buena shanika". [] Hoy no se preston realizado ningn diagnstico definitivo para dewey sntomas. Es posible que ests en proceso de desarrollar raina enfermedad grave. Es por eso que debe regresar al servicio de urgencias sin falta si presenta algn sntoma nuevo o que empeora (especialmente si dewey sntomas incluyen dolor en el pecho, dificultad para respirar, dolor abdominal, fiebre, dolor de rbaia, confusin, dificultad para jeffery o caminar). Tambin es muy importante que consulte a un mdico de atencin primaria dentro de los prximos 3 a 5 steinberg para realizar un seguimiento. Si no puede conseguir raina gisele, regrese al servicio de urgencias para raina nueva evaluacin. Dolor abdominal: instrucciones de cuidado Imagen de los cuatro cuadrantes del abdomen. Descripcin general El dolor abdominal tiene muchas causas posibles. Algunas no son graves y mejoran por s solas en unos steinberg. Otras requieren ms pruebas y tratamiento. Si el dolor contina o empeora, es necesario volver a examinarlo y es posible que necesite ms pruebas para averiguar qu es lo que est mal. Es posible que necesite raina ciruga para corregir el problema. No ignore los sntomas nuevos, oscar fiebre, nuseas y vmitos, problemas para orinar, dolor que empeora y mareos. Estos pueden ser signos de un problema ms grave. Si no mejora, es posible que necesite ms pruebas o tratamiento. El mdico lo preston examinado cuidadosamente, reyna pueden surgir problemas ms adelante. Si nota algn problema o sntomas nuevos, busque tratamiento mdico de inmediato . El seguimiento mdico es raina parte fundamental de gracia tratamiento y gracia seguridad. Asegrese de programar y acudir a todas las citas, y llame a gracia mdico si tiene problemas. Tambin es raina buena idea saber los resultados de dewey pruebas y llevar raina lista de los medicamentos que winsome. [employer] puedes cuidarte en casa? Descansa hasta que te sientas mejor. Para prevenir la deshidratacin, ramona abundante lquido. Elija agua y otros lquidos ally hasta que se sienta mejor. Si tiene raina enfermedad renal, cardaca o heptica y debe limitar los lquidos, consulte con gracia mdico antes de aumentar la cantidad de lquidos que marques. Cuando sientas ganas de comer, empieza con pequeas cantidades. No tomes alcohol, cafena ni alimentos picantes, calientes o con alto contenido de grasa nessa lucy o dos steinberg. Evite los medicamentos antiinflamatorios oscar la aspirina, el ibuprofeno (Advil, Motrin) y el naproxeno (Aleve). Pueden causar malestar estomacal. Hable con gracia mdico si winsome aspirina a diario por otro problema de shanika. Cundo debes pedir ayuda? Llame al 911 en cualquier momento en que crea que puede necesitar atencin de emergencia. Por ejemplo, llame si: Te desmayaste (perdiste el conocimiento). Tiene heces de color marrn o con daysi desean. Vomitas desean o lo que parecen posos de caf. Tienes un dolor intenso en el vientre. Llame a gracia mdico ahora o busque atencin mdica inmediata si: El dolor empeora, especialmente si se concentra en raina stevie determinada del abdomen. Tiene fiebre nueva o ms marcial. Las heces son negras y parecen alquitrn, o tienen vetas de desean. Tienes sangrado vaginal inesperado. Tiene sntomas de raina infeccin del tracto urinario. Estos pueden incluir: Dolor al orinar. Orinar con ms frecuencia de lo habitual. Desean en la orina. Se siente mareado o aturdido, o siente que se puede desmayar. Preste atencin a los cambios en gracia shanika y asegrese de comunicarse con gracia mdico si: No ests mejorando oscar esperabas. Crditos para el dolor abdominal: instrucciones de cuidado Actualizado al: 19 2023 Autor: [facility] Comments 48-year-old female presented with abdominal pain. No peritoneal signs on abdominal exam. No evidence of acute abdomen at this time. patient is well appearing. Labs show no leukocytosis or elevates of LFTs. Imaging shows no acute process. Patient is afebrile. Patient is not hypotensive. Low suspicion for acute hepatobiliary disease (including acute cholecystitis, acute pancreatitis, PUD (including perforation), acute infectious process (pneumonia, hepatitis, pyelonephritis), acute appendicitis, vascular catastrophe, bowel obstructions, viscous perforation. Presentation not consistent with other acute, emergent causes of abdominal pain at this time. Patient well-appearing, nontoxic. Advised prompt follow-up with PCP, return to the ED with any new, worsening or concerning symptoms. - I reviewed the following notes from the pt's past medical encounters: N/A The following tests were ordered, and results were reviewed by me: (See diagnostic results section) The following test were independently interpreted by me: N/A Additional information was gathered from interviewing the following independent historians: Patient's at bedside I reviewed and agreed with the following test results read by other providers: I discussed treatments and results with medical personnel and: N/A Decision regarding hospitalization or escalation of hospital level of care: Risks and benefits of admission for further treatment of patient's condition was considered however due to patient's stable condition patient will be discharged to follow up closely or return to care for worsening of condition or inability to follow up. Critical Care Note Critical Care Time?: No Stability Stability form required: No Heart Score Heart Score: Heart Score Response (Comments) Value History N/A 0 EKG N/A 0 Age N/A 0 Risk Factors N/A 0 Troponin N/A 0 Total 0 I personally scribed for CARLOS ELLISON MD ([email or web address]) on 08/06/24 at 20:36. Electronically submitted by Dangelo Ruiz ([employer]). I personally scribed for CARLOS ELLISON MD ([email or web address]) on 08/06/24 at 20:36. Electronically submitted by Dangelo Ruiz ([employer]). I personally scribed for CARLOS ELLISON MD ([email or web address]) on 08/06/24 at 21:51. Electronically submitted by Dangelo Ruiz ([employer]). I personally scribed for CARLOS ELLISON MD ([email or web address]) on 08/06/24 at 22:59. Electronically submitted by Dangelo Ruiz ([employer]). I personally scribed for CARLOS ELLISON MD ([email or web address]) on 08/06/24 at 23:00. Electronically submitted by Dangelo Ruiz ([email or web address]). CARLOS ELLISON MD Aug 06, 2024 20:36
[2024-08-06 20:49] LABS: Urine Bacteria None Seen /hpf (None Seen)
[2024-08-06 20:52] LABS: Basophils # (auto) 0.1 10 ^3/uL (0-0.2); Basophils % (auto) 1.1 % (0.0-2.0); Eosinophils # (auto) 0.1 10 ^3/uL (0-0.8); Eosinophils % (auto) 0.6 % (0.0-7.0); Hematocrit 35.1 % (36.0-46.0); Hemoglobin 12.4 g/dL (12.2-16.2); Lymphocytes # (auto) 4.2 10 ^3/uL (0.4-5.4); Lymphocytes % (auto) 42.1 % (10.0-50.0); Mean Corpuscular Hemoglobin 30.6 pg (28.0-32.0); Mean Corpuscular Hgb Conc. 35.2 g/dL (32.0-36.0); Monocytes # (auto) 0.5 10 ^3/uL (0-1.3); Monocytes % (auto) 5.4 % (0.0-12.0); Neutrophils # (auto) 5.1 10 ^3/uL (1.6-8.6); Neutrophils % (auto) 50.8 % (37.0-80.0); Nucleated Red Blood Cells % 0.1 %; Platelet Count (auto) 361 10^3/uL (140-450); Red Blood Cells 4.03 10^6/uL (4.0-5.20); Red Cell Distribution Width 13.3 % (11.8-14.3)
[2024-08-06 20:54] LABS: Urine Blood TRACE /uL (Negative); Urine Clarity Clear (Clear); Urine Color Light-Yellow (Yellow); Urine Mucus FEW (None Seen); Urine Protein, UAD Negative (Negative); Urine Specific Gravity 1.016 (1.001-1.035); Urine Squamous Epithelial Cell FEW /hpf (<5); Urine Urobilinogen Normal (Negative); Urine WBC 1 /HPF (0-5)
[2024-08-06 21:09] LABS: Alanine Aminotransferase 30 U/L (7-40); Anion Gap 11 (5-15); Aspartate Aminotransferase 24 U/L (13-40); BUN/Creatinine Ratio 19.4 (10.0-20.0); Blood Urea Nitrogen 14 mg/dL (9-23); Calcium 9.8 mg/dL (8.7-10.4); Carbon Dioxide 25 mmol/L (20-31); Chloride 101 mmol/L (98-107); Glucose 99 mg/dL (74-106); Lipase 48 U/L (12-53); Sodium 137 mmol/L (136-145)
[2024-08-06 21:10] LABS: Albumin 5.2 g/dL (3.2-4.8); Alkaline Phosphatase 128 U/L (46-116); Bilirubin, Total 0.3 mg/dL (0.2-1.0); Potassium 3.2 mmol/L (3.5-5.1); Total Protein 7.7 g/dL (5.7-8.2)
--- NOTE | 2024-08-06 21:43 | DVH ---
Exam: CT CT AB PEL WO CON-NO ORAL OR IV History: Right flank pain Comparison Study: None available at time of dictation. TECHNIQUE: Multidetector CT of the abdomen was performed from lung bases to pubic symphysis. Imaging was performed without IV contrast. Axial, coronal and sagittal multiplanar reformats were obtained fr om the axial data set by the technologist. Radiation Dose Information: CT Dose: CTDI volume is 9.17 mGy. Dose-length product is 477.5 mGy*cm FINDINGS: Evaluation of solid organs is limited due to lack of intravenous contrast use. Findings: Lung Bases: No acute or significant lung base finding. Normal heart size. No pleural or pericardial effusion. Liver: The liver is normal in size. No focal lesions. Gallbladder and Biliary Tree: Unremarkable Spleen: Unremarkable Pancreas: The pancreas is grossly normal in appearance. Adrenal Glands: Unremarkable Kidneys: Kidneys are grossly normal without calculi or hydronephrosis. Bladder: Grossly unremarkable for degree of distention. Bowel: The stomach is grossly normal in appearance. Small bowel and colon are normal in caliber and d istribution. The appendix is not visualized; however, no secondary findings of acute appendicitis id entified. Ascites: Absent Lymphadenopathy: No mesenteric, retroperitoneal or periportal lymphadenopathy. Abdominal Wall and Mesentery: Unremarkable. Vasculature: The visualized abdominal aorta is normal in size and caliber. Evaluation of abdominal a nd pelvic vessels is limited due to lack of intravenous contrast. Pelvic Organs: Unremarkable Musculoskeletal: No aggressive focal bony lesions, acute fractures or dislocation. Soft tissues: Unremarkable IMPRESSION: 1. No nephrolithiasis or hydronephrosis on the right or left. 2. No bladder calculi. 3. No CT findings to suggest bowel obstruction. Large stool burden throughout the colon. Radiation optimization: All CT scans at this facility use at least one of these dose optimization shruthi hniques: automated exposure control mA and/or kV adjustment per patient size (includes targeted exam s where dose is matched to clinical indication) or iterative reconstruction.
[2024-08-06] MEDS: KETOROLAC TROMETH 60MG/2ML VIAL IM ONE (21:47)
[2024-08-06 21:54] VITALS: BP 160/78; PULSE 103; RESP 18; TEMP 98.9; O2SAT 99
[2024-08-06] MEDS: POTASSIUM EFFERVESENT TAB 25 MEQ PO ONE (22:08)
--- NOTE | 2024-08-06 22:16 | DVH ---
CLINICAL INDICATION: Right hip pain TECHNIQUE: XY R HIP COMPLETE XRAY Comparison: None FINDINGS: IMPRESSION: No osseous or joint abnormality with no fracture or dislocation. Joint space is normal.
--- NOTE | 2024-08-06 22:56 | DVH ---
TRANSABDOMINAL PELVIC ULTRASOUND CLINICAL HISTORY: Right pelvic pain TECHNIQUE: Multiple grayscale ultrasound images were obtained of the pelvis via transabdominal appro ach. Limited color Doppler and spectral Doppler acquisitions were also obtained. COMPARISON: None FINDINGS: Uterus: 7.3 by 5.2 x 3.5 cm. The uterine contour is smooth. No myometrial masses are seen. Endometrium: 0.4 cm. No endometrial mass is seen. Right adnexa: right ovary 2.4 x 1.1 x 1.8 cm. Normal arterial blood flow in the ovary. No right adnex al mass seen. Left adnexa: left ovary 2.2 x 1.4 x 1.6 cm. Normal arterial blood flow in the ovary. No left adnexal mass seen. Other: None IMPRESSION: Unremarkable pelvic ultrasound.
== END 2024-08-07 00:18 | disposition home or self-care (01) ==
LOC: ER 20:03
DX: R10.31 Right lower quadrant pain (principal); I10 Essential (primary) hypertension; Z79.52 Long term (current) use of systemic steroids; Z79.899 Other long term (current) drug therapy
CPT/HCPCS: 36415; 73502; 74176; 76856; 80053; 81001; 81025; 83605; 83690; 85025; 96372; 99285; J1885

== ENCOUNTER 2024-08-12 19:55 | Emergency (ER) | payer MEDICAID ==
[~2024-08-12] VITALS: Ht 152.4 cm; Wt 69.0 kg
[2024-08-12 20:59] LABS: Urine Bacteria None Seen /hpf (None Seen)
[2024-08-12 21:13] LABS: Urine Blood 1+ /uL (Negative); Urine Clarity Clear (Clear); Urine Color Light-Yellow (Yellow); Urine Mucus FEW (None Seen); Urine Protein, UAD Negative (Negative); Urine Specific Gravity 1.019 (1.001-1.035); Urine Squamous Epithelial Cell FEW /hpf (<5); Urine Urobilinogen Normal (Negative); Urine WBC < 1 /HPF (0-5); Urine pH 5.5 (5.0-9.0)
--- NOTE | 2024-08-12 21:46 | ED.PDOC ---
History of Present Illness HPI Comments 48 y/o F, with a history of HTN and , presents with spouse for c/o non- radiating, RLQ abdominal pain, today. Per spouse, patient still endorses on having pain since initial onset several days ago and being seen and evaluated at ED on 08/06/24. Patient was stated to have had X-rays, CT-scans, urine test, and blood-work performed, with no significant findings or diagnosis made before being discharged. Since then, she comments on making an appointment with her PCP but only being able to get an appointment next month. She denies having any dysuria, nausea, vomiting, fever, chills, or other associated symptoms or modifiers at this time. Vital signs were stable on arrival. Chief Complaint: Abdominal Pain Time Seen by MD: 20:50 Primary Care Provider: none Reviewed Notes: Nurses Notes, Medications, Allergies Allergies: Coded Allergies: NO KNOWN ALLERGIES (Unverified , 12/24/21) Home Meds Active Scripts Triamcinolone Acetonide (Triamcinolone Acetonide) 0.1 % Cre, 1 APPLIC EX DAILY for 5 Days, #60 CRE 0 Refills Prov:JOSSUE SHIRLEY NP 06/05/24 Prednisone (Prednisone) 20 Mg Tab, 40 MG PO DAILY for 5 Days, #10 TAB 0 Refills Prov:JOSSUE SHIRLEY NP 06/05/24 Sucralfate (Sucralfate) 1 Gm Tab, 1 GM PO BID for 15 Days, #30 TAB Prov:ALMA DELIA SANTA RESIDENT 04/18/24 Pantoprazole Sodium Sesquihydr (Protonix) 40 Mg Tab, 40 MG PO DAILY for 30 Days, #30 TAB Prov:ALMA DELIA SANTA RESIDENT 04/18/24 Pantoprazole Sodium Sesquihydr (Protonix) 40 Mg Tab, 40 MG PO DAILY, #30 TAB Prov:ZENY HERNANDEZ MD 02/12/24 Ibuprofen (Ibuprofen) 800 Mg Tab, 1 TAB PO Q6HPRN PRN, #30 TAB 0 Refills Prov:RAYMUNDO MEJÍA 12/24/21 Information Source: Patient, Spouse Mode of Arrival: Ambulatory Severity: Moderate Timing: Days Duration: Since onset Prehospital treatment: None Past Medical History PAST MEDICAL HISTORY: HTN Past Medical History (Other): Recent right lower abdominal/pelvic pain Surgical History: Surgical History (Other): left knee surgery [employer] History: Denies all [employer] Hx Family History Family History: Reviewed,noncontributory to illness, Unknown Social History Smoker: Non-Smoker Alcohol: Denies ETOH Use Drugs: Denies Drug Use Lives In: Home Constitutional: denies: chills, diaphoresis, fatigue, fever, malaise, sweats, weakness, others EENTM: denies: blurred vision, double vision, ear bleeding, ear discharge, ear drainage, ear pain, ear ringing, eye pain, eye redness, hearing loss, mouth pain, mouth swelling, nasal discharge, nose bleeding, nose congestion, nose pain, photophobia, tearing, throat pain, throat swelling, voice changes, others Respiratory: denies: cough, hemoptysis, orthopnea, SOB at rest, shortness of breath, SOB with excertion, stridor, wheezing, others Cardiovascular: denies: chest pain, dizzy spells, diaphoresis, Dyspnea on exertion, edema, irregular heart beat, left arm pain, lightheadedness, palpitations, PND, syncope, others Gastrointestinal: reports: abdominal pain; denies: abdomen distended, blood streaked bowels, constipated, diarrhea, dysphagia, difficulty swallowing, hematemesis, melena, nausea, poor appetite, poor fluid intake, rectal bleeding, rectal pain, vomiting, others Genitourinary: denies: abnormal vagina bleeding, burning, dyspareunia, dysuria, flank pain, frequency, hematuria, incontinence, pain, , vagina discharge, urgency, others Neurological: denies: dizziness, fainting, headache, left sided numbness, left sided weakness, numbness, paresthesia, pre-existing deficit, right sided numbness, right sided weakness, seizure, speech problems, tingling, tremors, weakness, others Musculoskeletal: denies: back pain, gout, joint pain, joint swelling, muscle pain, muscle stiffness, neck pain, others Integumetry: denies: bruises, change in color, change in hair/nails, dryness, laceration, lesions, lumps, rash, wounds, others Allergic/Immunocompromised: denies: Difficulty Healing, Frequent Infections, Hives, Itching, others Hematologic/Lymphatic: denies: anemia, blood clots, easy bleeding, easy bruising, swollen glands, others Endocrine: denies: excessive hunger, excessive sweating, excessive thirst, excessive urination, flushing, intolerance to cold, intolerance to heat, unexplained weight gain, unexplained weight loss, others Psychiatric: denies: anxiety, bipolar disorder, depression, hopeless, panic disorder, schizophrenia, sleepless, suicidal, others All Other Systems: Reviewed and Negative (negative unless otherwise stated above or in HPI) Physical Exam General Appearance: Moderate Distress (Due to right lower quadrant/pelvic pain), Obese HEENT: Normal ENT Inspection, Pharynx Normal, TMs Normal Neck: Full Range of Motion, Non-Tender, Normal, Normal Inspection Respiratory: Chest Non-Tender, Lungs Clear, No Accessory Muscle Use, No Respiratory Distress, Normal Breath Sounds Cardiovascular: No Edema, No JVD, No Murmur, No Gallop, Normal Peripheral Pulses, Regular Rate/Rhythm Breast Exam: Deferred Gastrointestinal: Other (Diffuse right lower quadrant/pelvic pain. No signs of trauma. 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 Was a procedure done?: No Differential Dx Considerations may include: UTI, PID, appendicitis, ovarian cysts, ovarian torsion X-Ray, Labs, Meds, VS Vital Signs Date Time Temp Pulse Resp B/P (MAP) Pulse Ox O2 Delivery O2 Flow Rate FiO2 08/12/24 22:08 98.1 98 19 142/82 (102) 97 98.1 08/12/24 22:08 98 19 97 Room Air 08/12/24 20:45 98.2 113 20 170/82 (111) 100 Lab Test 08/12/24 00:00 Range/Units Urine Color Light-yellow Yellow Urine Clarity Clear Clear Urine pH 5.5 5.0-9.0 Urine Specific [place] 1.019 1.001-1.035 Urine Protein Negative Negative Urine Ketones Negative Negative Urine Blood 1+ H Negative /uL Urine Nitrite Negative Negative Urine Bilirubin Negative Negative Urine Urobilinogen Normal Negative mg/dL Urine Leukocyte Esterase Negative Negative /uL Urine RBC 2 0 - 4 /hpf Urine Microscopic WBC < 1 0-5 /HPF Urine Squamous Epithelial Cells Few <5 /hpf Urine Bacteria None seen None Seen /hpf Urine Mucus Few None Seen Urine Glucose Normal Normal mg/dL Current Medications Medications (Trade) Dose Ordered Sig/Rohit Route Start Time Stop Time Status Last Admin Ketorolac Tromethamine (Toradol Injection) 30 mg ONCE ONCE IM 08/12/24 21:00 08/12/24 21:01 DC 08/12/24 22:04 Acetaminophen/ Hydrocodone Bitart ([place] 5/325MG Tab) 1 tab ONCE ONCE PO 08/12/24 21:00 08/12/24 21:01 DC 08/12/24 22:04 X-Ray, Labs, Meds, VS Comment All studies performed the ED were evaluated by me personally. Urine continues to be unremarkable as as ultrasound or right lower quadrant. Patient may be experiencing some level of adhesion formation or other intra-abdominal concerns. Patient needs to follow up with her primary care provider and OB for continued evaluation and management. Time of 1ST Reevaluation: 22:44 Reevaluation 1ST: Improved Consultation: PCP, service secretary Patient Education/Counseling: Diagnosis, Treatment Family Education/Counseling: Diagnosis, Treatment Departure 1 Departure Time of Disposition: 22:44 Impression: Primary Impression: Abdominal pain Disposition: HOME / SELF CARE / HOMELESS Condition: Stable Additional Instructions: Advised patient continue follow up with primary care provider and Gynecology for evaluation of right lower pelvic concerns. e-Prescriptions Acetaminophen (Acetaminophen) 500 Mg Tab 500 MG PO Q4HP PRN, #30 TAB Prov: VIOLETTE MONTE PAC 08/12/24 Ibuprofen Micronized (Ibuprofen) 800 Mg Tab 800 MG PO Q8HP PRN, #30 TAB Prov: VIOLETTE MONTE PAC 08/12/24 Discharged With: Self, Spouse Critical Care Note Critical Care Time?: No Stability Stability form required: No Heart Score Heart Score: Heart Score Response (Comments) Value History N/A 0 EKG N/A 0 Age N/A 0 Risk Factors N/A 0 Troponin N/A 0 Total 0 I personally scribed for VIOLETTE MONTE PAC ([email or web address]) on 08/12/24 at 21:46. Electronically submitted by Hardeep Danielson ([email or web address]). VIOLETTE MONTE PAC Aug 12, 2024 21:46
--- NOTE | 2024-08-12 21:55 | DVH ---
EXAM: US PELVIC CLINICAL HISTORY: Right lower quadrant TECHNIQUE: Transabdominal ultrasound of the pelvis with color Doppler flow as clinically indicated. COMPARISON: US PELVIC on DOS: 08/06/24 Findings: Same-day quantitative beta-hCG is not available. Uterus measures 5.9 x 3.6 x 5.2 cm in size with relatively homogeneous echotexture and normal contour s. Endometrial thickness measures 0.2 cm with smooth contour. Cervix appears grossly unremarkable. Right ovary measures 1.9 x 1.5 x 1.7 cm. Left ovary measures 1.9 x 1.2 x 1.5 cm. Normal ovarian color Doppler flow to the bilateral ovaries. No free fluid in the cul-de-sac. Impression: 1. Uterus grossly unremarkable with endometrial thickness of 0.2 cm. 2. Bilateral ovaries within normal limits with normal color flow.
[2024-08-12] MEDS: KETOROLAC TROMETH 60MG/2ML VIAL IM ONE (22:04)
[2024-08-12] MEDS: HYDROcodone-ACET 5/325MG TAB PO ONE (22:04)
[2024-08-12 22:08] VITALS: BP 142/82; PULSE 98; RESP 19; TEMP 98.1; O2SAT 97
[2024-08-12] MEDS ORDERED: ACET500T58 PO (22:46)
[2024-08-12] MEDS ORDERED: IBUP-1455 PO (22:46)
== END 2024-08-12 22:54 | disposition home or self-care (01) ==
LOC: ER 19:55
DX: R10.31 Right lower quadrant pain (principal); I10 Essential (primary) hypertension; Z79.52 Long term (current) use of systemic steroids; Z79.899 Other long term (current) drug therapy
CPT/HCPCS: 76856; 81001; 96372; 99285; J1885

== ENCOUNTER → 2024-08-31 | Outpatient (CLI) | payer MEDICAID ==
[~2024-08-31] MED LIST changes: +ACET500T58 PO; +IBUP-1455 PO
[2024-08-31 08:48] LABS: Chloride 104 mmol/L (98-107); Sodium 140 mmol/L (136-145)
[2024-08-31 08:49] LABS: Anion Gap 10 (5-15); Carbon Dioxide 26 mmol/L (20-31)
[2024-08-31 08:50] LABS: Calcium 9.9 mg/dL (8.7-10.4); Potassium 3.5 mmol/L (3.5-5.1)
[2024-08-31 08:54] LABS: BUN/Creatinine Ratio 18.2 (10.0-20.0); Blood Urea Nitrogen 14 mg/dL (9-23)
[2024-08-31 09:24] LABS: Glucose 80 mg/dL (74-106)
== END | disposition home or self-care (01) ==
LOC: LAB 08:22
PROVIDERS: ATTEND Internal Medicine
DX: I10 Essential (primary) hypertension (principal)
CPT/HCPCS: 36415; 80048

== ENCOUNTER → 2024-09-01 | Outpatient (CLI) | payer MEDICAID | END | disposition home or self-care (01) | LOC: LAB 13:50 | DX: N39.0 Urinary tract infection, site not specified (principal) | CPT/HCPCS: 87086 ==

== ENCOUNTER 2024-11-08 14:43 | Emergency (ER) | payer MEDICAID ==
[~2024-11-08] VITALS: Ht 152.4 cm; Wt 69.9 kg
--- NOTE | 2024-11-08 15:19 | ED.PDOC ---
GI ASSESSMENT HPI Comments 49 y/o F, with PMHx of gastritis and HTN presents to the ED for CC of abdominal pain. Patient states, she has been experiencing epigastric abdominal pain with associated vomiting x2-3weeks. Patient reports, that she has seen her PCP for symptoms and was DX:gastritis; patient endorses having an appointment for an endoscopy in November 2024. Patient denies fever, chills, diarrhea, or back pain. No other symptoms or modifying factors present at this time. Chief Complaint: Abdominal Pain Time Seen by MD: 15:10 Primary Care Provider: none Reviewed Notes: Nurses Notes, Medications, Allergies Allergies: Coded Allergies: NO KNOWN ALLERGIES (Unverified , 12/24/21) Home Meds Active Scripts Ondansetron Odt 4MG Tab (ZOFRAN PO) 4 Mg Tb, 4 MG PO Q8HP PRN for 5 Days, #15 TAB ODT TAB-DISSOLVE IN MOUTH, THEN SWALLOW Prov:BRINDA CORDERO MD 11/08/24 Pantoprazole Sodium Sesquihydr (Protonix) 40 Mg Tab, 40 MG PO DAILY for 30 Days, #30 TAB Prov:BRINDA CORDERO MD 11/08/24 Acetaminophen (Acetaminophen) 500 Mg Tab, 500 MG PO Q4HP PRN, #30 TAB Prov:VIOLETTE MONTE PAC 08/12/24 Ibuprofen Micronized (Ibuprofen) 800 Mg Tab, 800 MG PO Q8HP PRN, #30 TAB Prov:VIOLETTE MONTE PAC 08/12/24 Triamcinolone Acetonide (Triamcinolone Acetonide) 0.1 % Cre, 1 APPLIC EX DAILY for 5 Days, #60 CRE 0 Refills Prov:JOSSUE SHIRLEY GYRO COMPASS TESTER 06/05/24 Prednisone (Prednisone) 20 Mg Tab, 40 MG PO DAILY for 5 Days, #10 TAB 0 Refills Prov:JOSSUE SHIRLEY GYRO COMPASS TESTER 06/05/24 Sucralfate (Sucralfate) 1 Gm Tab, 1 GM PO BID for 15 Days, #30 TAB Prov:ALMA DELIA SANTA RESIDENT 04/18/24 Pantoprazole Sodium Sesquihydr (Protonix) 40 Mg Tab, 40 MG PO DAILY, #30 TAB Prov:ZENY HERNANDEZ MD 02/12/24 Ibuprofen (Ibuprofen) 800 Mg Tab, 1 TAB PO Q6HPRN PRN, #30 TAB 0 Refills Prov:JILLIANSANDRA RiosRA Susu CAMPA 12/24/21 Information Source: Patient Mode of Arrival: Ambulatory Timing: Weeks Duration: Since onset Prehospital treatment: None Quality: Burning Vomitus: Watery Stool: Normal Severity: Moderate Recent: None Recent Hx of: None Pain Location: Epigastric Modifying Factors: Nothing Associated sign and symptoms: Vomiting, Abdominal Pain Past Medical History PAST MEDICAL HISTORY: HTN Surgical History: [employer] 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 Family History Family History: Reviewed,noncontributory to illness, Unknown Social History Smoker: Non-Smoker Alcohol: Denies ETOH Use Drugs: Denies Drug Use Lives In: Home Constitutional: denies: chills, diaphoresis, fatigue, fever, malaise, sweats, weakness, others EENTM: denies: blurred vision, double vision, ear bleeding, ear discharge, ear drainage, ear pain, ear ringing, eye pain, eye redness, hearing loss, mouth pain, mouth swelling, nasal discharge, nose bleeding, nose congestion, nose pain, photophobia, tearing, throat pain, throat swelling, voice changes, others Respiratory: denies: cough, hemoptysis, orthopnea, SOB at rest, shortness of breath, SOB with excertion, stridor, wheezing, others Cardiovascular: denies: chest pain, dizzy spells, diaphoresis, Dyspnea on exertion, edema, irregular heart beat, left arm pain, lightheadedness, palpitations, PND, syncope, others Gastrointestinal: reports: abdominal pain, vomiting; denies: abdomen distended, blood streaked bowels, constipated, diarrhea, dysphagia, difficulty swallowing, hematemesis, melena, nausea, poor appetite, poor fluid intake, rectal bleeding, rectal pain, others Genitourinary: denies: abnormal vagina bleeding, burning, dyspareunia, dysuria, flank pain, frequency, hematuria, incontinence, pain, , vagina discharge, urgency, others Neurological: denies: dizziness, fainting, headache, left sided numbness, left sided weakness, numbness, paresthesia, pre-existing deficit, right sided numbness, right sided weakness, seizure, speech problems, tingling, tremors, weakness, others Musculoskeletal: reports: back pain; denies: gout, joint pain, joint swelling, muscle pain, muscle stiffness, neck pain, others Integumetry: denies: bruises, change in color, change in hair/nails, dryness, laceration, lesions, lumps, rash, wounds, others Allergic/Immunocompromised: denies: Difficulty Healing, Frequent Infections, Hives, Itching, others Hematologic/Lymphatic: denies: anemia, blood clots, easy bleeding, easy bruisin g, swollen glands, others Endocrine: denies: excessive hunger, excessive sweating, excessive thirst, excessive urination, flushing, intolerance to cold, intolerance to heat, unexplained weight gain, unexplained weight loss, others Psychiatric: denies: anxiety, bipolar disorder, depression, hopeless, panic disorder, schizophrenia, sleepless, suicidal, others All Other Systems: Reviewed and Negative Physical Exam General Appearance: Moderate Distress HEENT: Normal ENT Inspection, Pharynx Normal, TMs Normal Neck: Full Range of Motion, Non-Tender, Normal, Normal Inspection Respiratory: Chest Non-Tender, Lungs Clear, No Accessory Muscle Use, No Respiratory Distress, Normal Breath Sounds Cardiovascular: No Edema, No JVD, No Murmur, No Gallop, Normal Peripheral Pulses, Regular Rate/Rhythm Breast Exam: Deferred Gastrointestinal: Epigastric, No Organomegaly, No Pulsatile Mass, Normal Bowel Sounds, Soft, Tenderness Genitalia: Deferred Pelvic: Deferred Rectal: Deferred Extremities: No calf tenderness, Normal capillary refill, Normal inspection, Normal range of motion, Non-tender, No pedal edema Musculoskeletal : Apperance: Normal Neurologic: Alert, choke setter II-XII nml as Tested, No Motor Deficits, Normal Affect, Normal Mood, No Sensory Deficits Cerebellar Function: Normal Reflexes: Normal Skin: Dry, Normal Color, Warm Lymphatic: No Adenopathy Was a procedure done? Was a procedure done?: No GI differential Dx Differential Diagnosis: Gastritis/PUD, Gastroenteritis, Electrolyte Imbalance, Food Poisoning, Bacterial, Viral X-Ray, Labs, Meds, VS Vital Signs Date Time Temp Pulse Resp B/P (MAP) Pulse Ox O2 Delivery O2 Flow Rate FiO2 11/08/24 14:54 98.1 89 19 141/61 (87) 100 98.1 Lab Test 11/08/24 15:34 11/08/24 15:18 Range/Units White Blood Count 8.5 4.4-10.8 10^3/uL Red Blood Count 3.94 L 4.0-5.20 10^6/uL Hemoglobin 12.3 12.2-16.2 g/dL Hematocrit 34.9 L 36.0-46.0 % Mean Corpuscular Volume 88.6 80.0-100.0 fL Mean Corpuscular Hemoglobin 31.1 28.0-32.0 pg Mean Corpuscular Hemoglobin Concent 35.1 32.0-36.0 g/dL Red Cell Distribution Width 12.7 11.8-14.3 % Platelet Count 364 140-450 10^3/uL Mean Platelet Volume 7.8 6.9-10.8 fL Neutrophils (%) (Auto) 58.5 37.0-80.0 % Lymphocytes (%) (Auto) 33.9 10.0-50.0 % Monocytes (%) (Auto) 6.0 0.0-12.0 % Eosinophils (%) (Auto) 0.9 0.0-7.0 % Basophils (%) (Auto) 0.7 0.0-2.0 % Neutrophils # (Auto) 5.0 1.6-8.6 10 ^3/uL Lymphocytes # (Auto) 2.9 0.4-5.4 10 ^3/uL Monocytes # (Auto) 0.5 0-1.3 10 ^3/uL Eosinophils # (Auto) 0.1 0-0.8 10 ^3/uL Basophils # (Auto) 0.1 0-0.2 10 ^3/uL Nucleated Red Blood Cells 0.1 % Sodium Level 142 136-145 mmol/L Potassium Level 3.6 3.5-5.1 mmol/L Chloride Level 104 98-107 mmol/L Carbon Dioxide Level 28 20-31 mmol/L Anion Gap 10 5-15 Blood Urea Nitrogen 17 9-23 mg/dL Creatinine 0.78 0.550-1.02 mg/dL Glomerular Filtration Rate Calc 94 >90 mL/min BUN/Creatinine Ratio 21.8 H 10.0-20.0 Serum Glucose 105 74-106 mg/dL Calcium Level 9.3 8.7-10.4 mg/dL Total Bilirubin 0.2 0.2-1.0 mg/dL Aspartate Amino Transferase (AST) 17 13-40 U/L Alanine Aminotransferase (ALT) 25 7-40 U/L Alkaline Phosphatase 134 H 46-116 U/L Total Protein 7.4 5.7-8.2 g/dL Albumin 4.7 3.2-4.8 g/dL Lipase Pending Urine Color Yellow Yellow Urine Clarity Turbid H Clear Urine pH 6.0 5.0-9.0 Urine Specific [place] 1.024 1.001-1.035 Urine Protein Negative Negative Urine Ketones Trace Negative Urine Blood Trace H Negative /uL Urine Nitrite Negative Negative Urine Bilirubin Negative Negative Urine Urobilinogen Normal Negative mg/dL Urine Leukocyte Esterase Negative Negative /uL Urine RBC 6 0 - 4 /hpf Urine Microscopic WBC 1 0-5 /HPF Urine Squamous Epithelial Cells Mod <5 /hpf Urine Bacteria Few H None Seen /hpf Urine Mucus Few None Seen Urine Glucose Normal Normal mg/dL GALLBLADDER US: IMPRESSION: Unremarkable right upper quadrant sonogram. The urine test is negative for infection The CBC and chemistry panel is within normal limits The patient is being discharged with a prescription of Protonix and Zofran The patient will return to the emergency department's condition worsens The patient is understands and agrees with the management. Images Reviewed?: Images reviewed and evaluated by me Time of 1ST Reevaluation: 15:40 Reevaluation 1ST: Unchanged Patient Education/Counseling: Diagnosis, Treatment, Prognosis, Need For Follow Up Family Education/Counseling: No Family Present Departure 1 Departure Time of Disposition: 16:21 Impression: Primary Impression: Acute gastritis Qualified Codes: K29.00 - Acute gastritis without bleeding Disposition: 01 HOME / SELF CARE / HOMELESS Condition: Fair e-Prescriptions Ondansetron Odt 4MG Tab (ZOFRAN PO) 4 Mg Tb 4 MG PO Q8HP PRN for 5 Days, #15 TAB ODT TAB-DISSOLVE IN MOUTH, THEN SWALLOW Prov: BRINDA CORDERO MD 11/08/24 Pantoprazole Sodium Sesquihydr (Protonix) 40 Mg Tab 40 MG PO DAILY for 30 Days, #30 TAB Prov: BRINDA CORDERO MD 11/08/24 Discharged With: Self Critical Care Note Critical Care Time?: No Stability Stability form required: No Heart Score Heart Score: Heart Score Response (Comments) Value History N/A 0 EKG N/A 0 Age N/A 0 Risk Factors N/A 0 Troponin N/A 0 Total 0 I personally scribed for BRINDA CORDERO MD ([email or web address]) on 11/08/24 at 15:19. Electronically submitted by Maribel Guerra ([email or web address]). I personally scribed for BRINDA CORDERO MD ([email or web address]) on 11/08/24 at 15:36. Electronically submitted by Maribel Guerra ([email or web address]). I personally scribed for BRINDA CORDERO MD ([email or web address]) on 11/08/24 at 16:14. Electronically submitted by Maribel Guerra ([email or web address]). BRINDA CORDERO MD November 08, 2024 15:19
[2024-11-08 15:24] LABS: Urine Bacteria FEW /hpf (None Seen); Urine Blood TRACE /uL (Negative); Urine Clarity Turbid (Clear); Urine Color Yellow (Yellow); Urine Mucus FEW (None Seen); Urine Protein, UAD Negative (Negative); Urine Specific Gravity 1.024 (1.001-1.035); Urine Squamous Epithelial Cell MOD /hpf (<5); Urine Urobilinogen Normal (Negative); Urine WBC 1 /HPF (0-5)
--- NOTE | 2024-11-08 15:44 | DVH ---
INDICATION: pain TECHNIQUE: Multiple real-time sonographic images were obtained of the right upper quadrant. COMPARISON: None FINDINGS: The liver demonstrates homogeneous echotexture without focal mass lesions. The liver measu res 13.8 cm. There is no intrahepatic or extrahepatic ductal dilatation. The common duct measures 0.3 cm. The gallbladder is without evidence of stone or sludge. The gallbladder wall measures 0.3 cm and is w ithin normal limits. The right kidney measures 10.2 cm. The right kidney is normal in contour, size, and shape. The echoge nicity is normal. There is no hydronephrosis. The pancreas is not well visualized due to overlying bowel gas. IMPRESSION: Unremarkable right upper quadrant sonogram.
[2024-11-08 15:51] LABS: Basophils # (auto) 0.1 10 ^3/uL (0-0.2); Basophils % (auto) 0.7 % (0.0-2.0); Eosinophils # (auto) 0.1 10 ^3/uL (0-0.8); Eosinophils % (auto) 0.9 % (0.0-7.0); Hematocrit 34.9 % (36.0-46.0); Hemoglobin 12.3 g/dL (12.2-16.2); Lymphocytes # (auto) 2.9 10 ^3/uL (0.4-5.4); Lymphocytes % (auto) 33.9 % (10.0-50.0); Mean Corpuscular Hemoglobin 31.1 pg (28.0-32.0); Mean Corpuscular Hgb Conc. 35.1 g/dL (32.0-36.0); Mean Corpuscular Volume 88.6 fL (80.0-100.0); Monocytes # (auto) 0.5 10 ^3/uL (0-1.3); Neutrophils % (auto) 58.5 % (37.0-80.0); Nucleated Red Blood Cells % 0.1 %; Platelet Count (auto) 364 10^3/uL (140-450); Red Blood Cells 3.94 10^6/uL (4.0-5.20); Red Cell Distribution Width 12.7 % (11.8-14.3); White Blood Cell 8.5 10^3/uL (4.4-10.8)
[2024-11-08 16:02] LABS: Alanine Aminotransferase 25 U/L (7-40); Anion Gap 10 (5-15); Aspartate Aminotransferase 17 U/L (13-40); BUN/Creatinine Ratio 21.8 (10.0-20.0); Blood Urea Nitrogen 17 mg/dL (9-23); Calcium 9.3 mg/dL (8.7-10.4); Carbon Dioxide 28 mmol/L (20-31); Chloride 104 mmol/L (98-107); Glucose 105 mg/dL (74-106); Potassium 3.6 mmol/L (3.5-5.1); Sodium 142 mmol/L (136-145); Total Protein 7.4 g/dL (5.7-8.2)
[2024-11-08 16:03] LABS: Albumin 4.7 g/dL (3.2-4.8); Alkaline Phosphatase 134 U/L (46-116); Bilirubin, Total 0.2 mg/dL (0.2-1.0)
[2024-11-08] MEDS ORDERED: ZOFR4T PO (16:20)
[2024-11-08] MEDS ORDERED: PANT40TA2 PO (16:20)
[2024-11-08 16:40] LABS: Lipase 46 U/L (12-53)
[2024-11-08 18:55] VITALS: BP 125/81; PULSE 89; RESP 18; TEMP 98; O2SAT 98
== END 2024-11-08 18:58 | disposition home or self-care (01) ==
LOC: ER 14:53
DX: K29.00 Acute gastritis without bleeding (principal); I10 Essential (primary) hypertension; Z79.899 Other long term (current) drug therapy
CPT/HCPCS: 36415; 76705; 80053; 81001; 83690; 85025

== ENCOUNTER → 2024-12-23 | Day surgery (SDC) | payer MEDICAID ==
[2024-12-21 09:31] LABS: Basophils # (auto) 0.1 10 ^3/uL (0-0.2); Eosinophils # (auto) 0.1 10 ^3/uL (0-0.8); Eosinophils % (auto) 0.8 % (0.0-7.0); Hematocrit 36.5 % (36.0-46.0); Hemoglobin 12.8 g/dL (12.2-16.2); Lymphocytes # (auto) 2.2 10 ^3/uL (0.4-5.4); Lymphocytes % (auto) 32.3 % (10.0-50.0); Mean Corpuscular Hemoglobin 30.7 pg (28.0-32.0); Mean Corpuscular Volume 87.7 fL (80.0-100.0); Monocytes # (auto) 0.5 10 ^3/uL (0-1.3); Neutrophils # (auto) 4.1 10 ^3/uL (1.6-8.6); Neutrophils % (auto) 58.9 % (37.0-80.0); Nucleated Red Blood Cells % 0.1 %; Platelet Count (auto) 339 10^3/uL (140-450); Red Blood Cells 4.16 10^6/uL (4.0-5.20); Red Cell Distribution Width 12.5 % (11.8-14.3); White Blood Cell 6.9 10^3/uL (4.4-10.8)
[2024-12-21 09:44] LABS: INR 0.97 (0.9-1.15); Partial Thromboplastin Time 27.5 SEC (24.5-34.5); Prothrombin Time 10.3 sec (9.3-11.8)
[2024-12-21 09:52] LABS: Alanine Aminotransferase 12 U/L (7-40); Albumin 5.1 g/dL (3.2-4.8); Alkaline Phosphatase 117 U/L (46-116); Anion Gap 14 (5-15); Aspartate Aminotransferase 20 U/L (<34); BUN/Creatinine Ratio 17.9 (10.0-20.0); Bilirubin, Total 0.4 mg/dL (0.2-1.0); Blood Urea Nitrogen 14 mg/dL (9-23); Calcium 9.9 mg/dL (8.7-10.4); Carbon Dioxide 24 mmol/L (20-31); Chloride 104 mmol/L (98-107); Glucose 76 mg/dL (74-106); Potassium 3.4 mmol/L (3.5-5.1); Sodium 142 mmol/L (136-145); Total Protein 7.8 g/dL (5.7-8.2)
[~2024-12-23] VITALS: Ht 152.4 cm; Wt 67.6 kg
[~2024-12-23] MED LIST changes: +SODIUM CHLORIDE LOCK 10 ML ONE; +ZOFR4T PO
[2024-12-23 11:20] VITALS: PULSE 64; RESP 12; RESP 17; O2SAT 100; O2SAT 97
[2024-12-23] MEDS: diphenhdrAMINE HCL 50 MG/1 ML VL ONE (11:35)
[2024-12-23] MEDS: fentaNYL CITRATE 100 MCG/2 ML VL ONE (11:35)
[2024-12-23] MEDS: MIDAZOLAM HCL 5 MG/ML-1ML VIAL ONE (11:35)
[2024-12-23] MEDS: LIDOCAINE VISCOUS 2% 15ML UD ONE (11:35)
[2024-12-23 11:44] VITALS: TEMP 97.8
[2024-12-23 12:29] VITALS: BP 120/86; PULSE 60; RESP 15; O2SAT 98
--- NOTE | 2024-12-23 13:32 | DVHOP2 ---
Operative Report DATE OF OPERATION: 12/23/24 PROCEDURE: Upper Endoscopy with biopsy. PREOPERATIVE INDICATION: The patient is a 49 -year-old female undergoing endoscopy for epigastric pain POSTOPERATIVE DIAGNOSES: 1. Mild gastritis with some hyperemia erythema 2. Slightly irregular squamocolumnar junction with 0.5 cm sliding-type hiatal hernia and no significant erosive esophagitis PROCEDURE PERFORMED BY: Sukumar Joy GI NURSE: Brenda SCOPE: Olympus videoendoscope. ASA CLASS: 2. PREOPERATIVE MEDICATIONS: Versed 3 mg, Fentanyl 75 mcg, Benadryl 50 mg I administered moderate sedation throughout this _7_ minutes procedure. An independent trained observer pushed medications at my direction, and monitored the patient's level of consciousness and physiological status throughout. PROCEDURE IN DETAIL: After obtaining an informed consent, the patient was placed on left lateral decubitus position. The patient was then sedated with the above medications. A bite block was placed between her teeth. The endoscope was then passed through the oropharynx, into the esophagus, and through the stomach and pylorus up to the second and third part of the duodenum. The endoscope was then withdrawn. The 2nd and 3rd part of the duodenum and the duodenal bulb were normal. Duodenal biopsies were obtained The pre-pyloric area and antrum and body of the stomach showed mild hyperemia and erythema. Gastric biopsies were obtained On retroflexion the fundus cardia and angularis were normal. The endoscope was then withdrawn into the distal esophagus Patient had a slightly irregular squamocolumnar junction and a 0.5 cm sliding- type hiatal hernia and GE junction biopsies were obtained The remaining distal and proximal esophagus and oropharynx were unremarkable The patient tolerated the procedure well without difficulty. COMPLICATIONS : None SPECIMENS: Duodenal biopsies Gastric biopsies GE junction biopsies DISPOSITION: Stable D/C to home PLAN: 1. Await for biopsy result 2. Will place pt on Protonix 40 mg p.o. daily 3. Lifestyle and dietary modifications for GERD 4. Resume GI soft diet advance as tolerated 5. Outpatient follow up with me in 4-6 weeks to review results and discuss further management SUKUMAR JOY MD Dec 23, 2024 13:32
== END | disposition home or self-care (01) ==
LOC: GI 09:43
PROVIDERS: ATTEND Internal Medicine Gastroenterology
DX: R10.13 Epigastric pain (principal); K44.9 Diaphragmatic hernia without obstruction or gangrene; K21.00 Gastro-esophageal reflux disease with esophagitis, without bleeding; B96.81 Helicobacter pylori [H. pylori] as the cause of diseases classified elsewhere; K29.50 Unspecified chronic gastritis without bleeding; I10 Essential (primary) hypertension; E11.9 Type 2 diabetes mellitus without complications; Z79.899 Other long term (current) drug therapy; Z79.84 Long term (current) use of oral hypoglycemic drugs; Z98.890 Other specified postprocedural states
CPT/HCPCS: 36415; 43239; 80053; 84702; 85025; 85610; 85730; 88305; 88342; J1200; J2250; J3010; J7030

== ENCOUNTER 2025-05-10 15:01 | Emergency (ER) | payer MEDICAID ==
[~2025-05-10] VITALS: Ht 154.9 cm; Wt 70.0 kg
[~2025-05-10 15:01] MED LIST changes: -SODIUM CHLORIDE LOCK 10 ML ONE
[2025-05-10] MEDS: ONDANSETRON HCL 4 MG/2 ML VIAL IV ONE (15:30)
[2025-05-10] MEDS: SODIUM CHLORIDE 0.9% 1,000 ML IV ONE (15:30)
[2025-05-10] MEDS: LIDOCAINE VISCOUS 2% 15ML UD PO ONE (15:30)
--- NOTE | 2025-05-10 15:46 | ED.PDOC ---
GI ASSESSMENT HPI Comments HPI: This is a 49 year old female presenting to the ED with chief complaint of abdominal pain. Patient reports that she has been experiencing increased epigastric abdominal pain with associated nausea, vomiting, and diarrhea for the past 2 days. Patient relays that she vomited twice today and had only one episode of diarrhea today. Patient states that she has history of chronic gastritis, currently taking Protonix and Carafate, both of which she took today with no relief. Patient notes that she is currently on Keflex for a recent dental infection. Patient denies any fever, chills, hematemesis, headache, or SOB. Past Medical history: Gastritis, HTN Past Surgical history: , Bilateral knee surgery Medications: Carafate, Protonix Social History: Denies smoking, ETOH, and drug use. Allergies: NKDA HPI: Poor Historian. Diarrhea has resolved prior to my evaluation. We asked the patient to give us a stool sample but she says she can not because it is no more diarrhea. REVIEW OF SYSTEMS: CONSTITUTIONAL: Denies acute: fever, diaphoresis, chills, generalized weakness. HEAD: Denies acute: headache, photophobia Eyes: Denies acute: Double vision, vision loss, eye pain, eye discharge. EARS: Denies acute: tinnitus, hearing loss, ear discharge, ear pain, THROAT: Denies acute: sore throat, swelling, difficulty swallowing , pain with swallowing, change in voice. NECK: Denies acute: neck pain, neck swelling, stiff neck. HEART: Denies acute : chest pain, palpitations, LUNGS: Denies acute: SOB, wheezing, cough, hemoptysis ABDOMEN: Denies acute: Vomiting, melena , hematemesis, hematochezia SKIN: Denies acute: rash, redness, lesions, itchiness. EXTREMITIES: Denies acute: calf pain, numbness, tingling, weakness, denies pain in extremity. Denies acute: Low back pain. Neuro: Denies acute: focal neurological deficit, motor or sensory focal neurological deficit, tremors, seizure like activity, confusion, dizziness, change in mental status, loss of bowel or bladder function, cauda equina like symptoms. : Denies acute: dysuria, hematuria, flank pain, increase in urinary frequency. PSYCH: Denies acute: hallucination, suicidal ideation, homicidal ideation. FEMALE: Denies acute: abnormal vaginal bleeding, foul odor, unusual discharge. PHYSICAL EXAM: General: -----mild---acute distress, awake and alert. Head: normocephalic, atraumatic. No raccoon's eyes, no chavarria sign. Neck: supple, trachea is midline, no swelling. Throat: Normal phonation. Eyes:, no erythema, no purulent discharge, no proptosis, no icterus. Heart: regular rate, regular rhythm, no significant murmur appreciated. Lungs: no apparent respiratory distress, Able to speak in full sentences. No wheezing, no rhonchi, no crackles. No stridors Clear to auscultation bilaterally. Abdomen: Epigastric tender to palpation, non distended, soft, no guarding, no rebound, + bowel sounds. Neuro: Awake, Alert, oriented to name, self, situation, follows commands GCS=15. Speech is normal. Skin: no petechia, no purpura, no cyanosis, non-pale, not jaundice. Lower extremities: --no - Pitting edema no deformity, no focal swelling, no calf TTP. Makes eye contact. moves all four extremities. Face: no apparent facial droop. Ambulating in the ED independently. ED COURSE: DISCLAIMER: This medical document was created using an electronic medical record system with voice recognition software and computerized dictation system. Although this document has been carefully reviewed, there might still be some phonetic and typographical errors. Occasional wrong-word or "sound-alike" substitutions may have occurred due to the inherent limitations of voice recognition software. These areas are purely typographical due to imperfections of the software programs and do not reflect any compromise in the patient's medical care. Please read the chart carefully and recognize, using context, where these substitutions have occurred. Chief Complaint: Abdominal Pain Time Seen by MD: 15:43 Primary Care Provider: none Reviewed Notes: Medications, Allergies Allergies: Coded Allergies: NO KNOWN ALLERGIES (Unverified , 12/24/21) Home Meds Active Scripts Ondansetron Odt 4MG Tab (ZOFRAN PO) 4 Mg Tb, 4 MG PO Q8HP PRN for 5 Days, #15 TAB ODT TAB-DISSOLVE IN MOUTH, THEN SWALLOW Prov:CONSUELO,BRINDA B MD 11/08/24 Pantoprazole Sodium Sesquihydr (Protonix) 40 Mg Tab, 40 MG PO DAILY for 30 Days, #30 TAB Prov:BRINDA CORDERO MD 11/08/24 Acetaminophen (Acetaminophen) 500 Mg Tab, 500 MG PO Q4HP PRN, #30 TAB Prov:VIOLETTE MONTE PAC 08/12/24 Ibuprofen Micronized (Ibuprofen) 800 Mg Tab, 800 MG PO Q8HP PRN, #30 TAB Prov:VIOLETTE MONTE PAC 08/12/24 Triamcinolone Acetonide (Triamcinolone Acetonide) 0.1 % Cre, 1 APPLIC EX DAILY for 5 Days, #60 CRE 0 Refills Prov:JOSSUE SHIRLEY HUMAN RESOURCES OFFICE MANAGER 06/05/24 Prednisone (Prednisone) 20 Mg Tab, 40 MG PO DAILY for 5 Days, #10 TAB 0 Refills Prov:JOSSUE SHIRLEY HUMAN RESOURCES OFFICE MANAGER 06/05/24 Sucralfate (Sucralfate) 1 Gm Tab, 1 GM PO BID for 15 Days, #30 TAB Prov:ALMA DELIA SANTA RESIDENT 04/18/24 Pantoprazole Sodium Sesquihydr (Protonix) 40 Mg Tab, 40 MG PO DAILY, #30 TAB Prov:ZENY HERNANDEZ MD 02/12/24 Ibuprofen (Ibuprofen) 800 Mg Tab, 1 TAB PO Q6HPRN PRN, #30 TAB 0 Refills Prov:RAYMUNDO MEJÍA 12/24/21 Information Source: Patient Mode of Arrival: Ambulatory Was a procedure done? Was a procedure done?: No GI differential Dx Differential Diagnosis: Gastritis/PUD, Gastroenteritis X-Ray, Labs, Meds, VS Vital Signs Date Time Temp Pulse Resp B/P (MAP) Pulse Ox O2 Delivery O2 Flow Rate FiO2 05/10/25 18:25 98.7 73 18 177/89 (118) 95 98.7 05/10/25 15:02 97.8 83 18 138/74 100 97.8 Lab Test 05/10/25 16:53 05/10/25 15:47 Range/Units Urine Color Light-yellow Yellow Urine Clarity Clear Clear Urine pH 6.0 5.0-9.0 Urine Specific [place] 1.022 1.001-1.035 Urine Protein Negative Negative Urine Ketones Negative Negative Urine Blood Negative Negative /uL Urine Nitrite Negative Negative Urine Bilirubin Negative Negative Urine Urobilinogen Normal Negative mg/dL Urine Leukocyte Esterase Negative Negative /uL Urine RBC 4 0 - 4 /hpf Urine Microscopic WBC < 1 0-5 /HPF Urine Squamous Epithelial Cells Few <5 /hpf Urine Bacteria None seen None Seen /hpf Urine Glucose Normal Normal mg/dL White Blood Count 8.9 4.4-10.8 10^3/uL Red Blood Count 3.91 L 4.0-5.20 10^6/uL Hemoglobin 12.3 12.2-16.2 g/dL Hematocrit 35.6 L 36.0-46.0 % Mean Corpuscular Volume 91.0 80.0-100.0 fL Mean Corpuscular Hemoglobin 31.3 28.0-32.0 pg Mean Corpuscular Hemoglobin Concent 34.4 32.0-36.0 g/dL Red Cell Distribution Width 12.8 11.8-14.3 % Platelet Count 369 140-450 10^3/uL Mean Platelet Volume 8.0 6.9-10.8 fL Neutrophils (%) (Auto) 58.2 37.0-80.0 % Lymphocytes (%) (Auto) 33.9 10.0-50.0 % Monocytes (%) (Auto) 6.3 0.0-12.0 % Eosinophils (%) (Auto) 1.0 0.0-7.0 % Basophils (%) (Auto) 0.6 0.0-2.0 % Neutrophils # (Auto) 5.2 1.6-8.6 10 ^3/uL Lymphocytes # (Auto) 3.0 0.4-5.4 10 ^3/uL Monocytes # (Auto) 0.6 0-1.3 10 ^3/uL Eosinophils # (Auto) 0.1 0-0.8 10 ^3/uL Basophils # (Auto) 0.1 0-0.2 10 ^3/uL Nucleated Red Blood Cells 0.2 % Sodium Level 144 136-145 mmol/L Potassium Level 3.7 3.5-5.1 mmol/L Chloride Level 105 98-107 mmol/L Carbon Dioxide Level 27 20-31 mmol/L Anion Gap 12 5-15 Blood Urea Nitrogen 15 9-23 mg/dL Creatinine 0.64 0.550-1.02 mg/dL Glomerular Filtration Rate Calc 110 >90 mL/min BUN/Creatinine Ratio 23.4 H 10.0-20.0 Serum Glucose 87 74-106 mg/dL Lactic Acid Level 1.4 0.4-2.0 mmol/L Calcium Level 8.7 8.7-10.4 mg/dL Total Bilirubin 0.2 0.2-1.0 mg/dL Aspartate Amino Transferase (AST) 24 13-40 U/L Alanine Aminotransferase (ALT) 23 7-40 U/L Alkaline Phosphatase 126 H 46-116 U/L Troponin I High Sensitivity 16 </=34 ng/L Total Protein 7.2 5.7-8.2 g/dL Albumin 4.6 3.2-4.8 g/dL Lipase 38 12-53 U/L Current Medications Medications (Trade) Dose Ordered Sig/Rohit Route Start Time Stop Time Status Last Admin Lidocaine HCl (Xylocaine 2% Viscous) 10 ml ONCE ONCE PO 05/10/25 15:30 05/10/25 15:31 DC 05/10/25 15:30 Sodium Chloride 1,000 ml @ 1,000 mls/hr Q1H ONCE IV 05/10/25 15:30 05/10/25 16:29 DC 05/10/25 15:30 Ondansetron HCl (Zofran) 8 mg ONCE ONCE IV 05/10/25 15:30 05/10/25 15:31 DC 05/10/25 15:30 [place] [address] Ph: [phone] DIAGNOSTIC IMAGING Diagnostic Imaging Report : [id number] Signed PATIENT: JEET CARDONA AACCT: [id number] UNIT: [id number] : 1975 LOC: ER ROOM / BED: / AGE / SEX: 49 / F ADM STATUS: REG ER SERVICE 1528 ORDERING PHYSICIAN: DARON AVALOS DO PROCEDURE(s): ABDL - ABDOMEN LIMITED REASON: epig pain ORDER NUMBER(s): [id number], ACCESSION NUMBER(s): [id number] Technique: Real-time ultrasound imaging of the abdomen was performed with grayscale and color Doppler. Indication: epig pain Comparison: US GALLBLADDER on DOS: 11/08/24 Findings: Liver measures 13.4 cm. It is increased in echogenicity and echotexture without focal mass. Portal vein is normal in caliber and demonstrates normal hepatopetal flow. Gallbladder demonstrates no cholelithiasis. There is no pericholecystic fluid. The wall thickness is normal. The common bile duct measures 5 mm. No intrahepatic biliary ductal dilatation. The right kidney measures 10.3 cm. There is no hydronephrosis or sonographic evidence of nephrolithiasis. The visualized portion of the pancreas is unremarkable. The visualized portion of the IVC is unremarkable. Impression: Echogenic liver which can be seen with hepatic steatosis, cirrhosis. No sonographic evidence for cholelithiasis. ATED BY: TOBY FAROOQ MD DICTATED DATE/TIME: 05/10/25 163 SIGNED BY: TOBY FAROOQ MD SIGNED DATE/TIME: 05/10/25 163 CC: Time of 1ST Reevaluation: 16:41 Reevaluation 1ST: Unchanged Time of 2ND Reevaluation: 20:13 Reevaluation 2ND: Resolved Patient Education/Counseling: Diagnosis, Treatment Family Education/Counseling: Diagnosis, Treatment Departure 1 Departure Time of Disposition: 16:31 Impression: Primary Impression: Epigastric pain Disposition: 01 HOME / SELF CARE / HOMELESS Condition: Stable Additional Instructions: Additional instructions: Please read all instructions provided in this packet carefully. You MUST follow-up with your primary care/family doctor in 1 to 2 days. If you are unable to see your primary care/family doctor, please return to our emergency room for re-assessment and re-evaluation in 1 to 2 days. Return to the emergency room here in our facility or to the nearest ER [facility] if your symptoms change or worsen. CONSULTATIONS: you MUST Follow-up for consultation as soon as possible with: -gastroenterology in 1-2 days. Please call for appointment. You MUST call the consultants office yourself to make an appointment. You may need to arrange that through your insurance and/or your primary/family doctor. If you are unable to see the loans consultant in 1 to 2 days, you must return to our emergency room (or any other ER of your choice) for re-assessment and re- evaluation. Adequate fluid hydration. Although you have been discharged from the Emergency Department, this does not m makenzie that you have a "clean bill of health". No definitive diagnosis for your symptoms has been made today. It is possible that you are in the process of developing a serious illness. This is why you must return to the ED without fail if any new or worsening symptoms develop. Avoid fatty greasy spicy food. Avoid caffeinated products. Avoid NSAIDs. Below is a copy of your radiological report for follow up: [address] [address] Ph: [phone] DIAGNOSTIC IMAGING Diagnostic Imaging Report : [id number] Signed PATIENT: JEET CARDONA ACCT: [id number] UNIT: [id number] : 1975 LOC: ER ROOM / BED: / AGE / SEX: 49 / F ADM STATUS: REG ER SERVICE 1528 ORDERING PHYSICIAN: DARON AVALOS DO PROCEDURE(s): ABDL - ABDOMEN LIMITED REASON: epig pain ORDER NUMBER(s): [id number], ACCESSION NUMBER(s): [id number] Technique: Real-time ultrasound imaging of the abdomen was performed with grayscale and color Doppler. Indication: epig pain Comparison: US GALLBLADDER on DOS: 11/08/24 Findings: Liver measures 13.4 cm. It is increased in echogenicity and echotexture without focal mass. Portal vein is normal in caliber and demonstrates normal hepatopetal flow. Gallbladder demonstrates no cholelithiasis. There is no pericholecystic fluid. The wall thickness is normal. The common bile duct measures 5 mm. No intrahepatic biliary ductal dilatation. The right kidney measures 10.3 cm. There is no hydronephrosis or sonographic evidence of nephrolithiasis. The visualized portion of the pancreas is unremarkable. The visualized portion of the IVC is unremarkable. Impression: Echogenic liver which can be seen with hepatic steatosis, cirrhosis. No sonographic evidence for cholelithiasis. ATED BY: TOBY FAROOQ MD DICTATED DATE/TIME: 05/10/25 1630 SIGNED BY: TOBY FAROOQ MD SIGNED DATE/TIME: 05/10/25 1630 CC: Discharged With: Self, Relative Critical Care Note Critical Care Time?: No I personally scribed for DARON AVALOS DO ([email or web address]) on 05/10/25 at 15:46. Electronically submitted by Jose Mckinney ([email or web address]). DARON AVALOS DO May 10, 2025 15:46
[2025-05-10 16:04] LABS: Hematocrit 35.6 % (36.0-46.0); Hemoglobin 12.3 g/dL (12.2-16.2); Mean Corpuscular Hemoglobin 31.3 pg (28.0-32.0); Mean Corpuscular Volume 91.0 fL (80.0-100.0); Nucleated Red Blood Cells % 0.2 %
--- NOTE | 2025-05-10 16:28 | DVH ---
Technique: Real-time ultrasound imaging of the abdomen was performed with grayscale and color Doppler. Indication: epig pain Comparison: US GALLBLADDER on DOS: 11/08/24 Findings: Liver measures 13.4 cm. It is increased in echogenicity and echotexture without focal mass. Portal vein is normal in caliber and demonstrates normal hepatopetal flow. Gallbladder demonstrates no cholelithiasis. There is no pericholecystic fluid. The wall thickness is normal. The common bile duct measures 5 mm. No intrahepatic biliary ductal dilatation. The right kidney measures 10.3 cm. There is no hydronephrosis or sonographic evidence of nephrolithiasis. The visualized portion of the pancreas is unremarkable. The visualized portion of the IVC is unremarkable. Impression: Echogenic liver which can be seen with hepatic steatosis, cirrhosis. No sonographic evidence for cholelithiasis.
[2025-05-10 16:30] LABS: Alanine Aminotransferase 23 U/L (7-40); Albumin 4.6 g/dL (3.2-4.8); Anion Gap 12 (5-15); BUN/Creatinine Ratio 23.4 (10.0-20.0); Blood Urea Nitrogen 15 mg/dL (9-23); Calcium 8.7 mg/dL (8.7-10.4); Carbon Dioxide 27 mmol/L (20-31); Chloride 105 mmol/L (98-107); Glucose 87 mg/dL (74-106); Lipase 38 U/L (12-53); Potassium 3.7 mmol/L (3.5-5.1); Sodium 144 mmol/L (136-145); Total Protein 7.2 g/dL (5.7-8.2)
[2025-05-10 16:34] LABS: Alkaline Phosphatase 126 U/L (46-116); Bilirubin, Total 0.2 mg/dL (0.2-1.0)
[2025-05-10 17:20] LABS: Urine Protein, UAD Negative (Negative)
[2025-05-10 20:26] VITALS: BP 161/88; TEMP 97.5; O2SAT 100
[2025-05-10 21:07] VITALS: PULSE 80; RESP 18
== END 2025-05-10 21:09 | disposition home or self-care (01) ==
LOC: ER 15:01
DX: R10.13 Epigastric pain (principal); R11.2 Nausea with vomiting, unspecified; R19.7 Diarrhea, unspecified; I10 Essential (primary) hypertension; Z79.899 Other long term (current) drug therapy
CPT/HCPCS: 36415; 76705; 80053; 81001; 83605; 83690; 84484; 85025; 96361; 96374; 99285; J2405; J7030

== ENCOUNTER 2025-05-17 17:23 | Emergency (ER) | payer MEDICAID ==
[~2025-05-17] VITALS: Ht 154.9 cm; Wt 69.7 kg
[2025-05-17 17:25] VITALS: BP 132/76; PULSE 111; RESP 20; TEMP 97.9; O2SAT 98
--- NOTE | 2025-05-17 18:35 | ED.PDOC ---
GI ASSESSMENT HPI Comments 49 year old female presents to the ED with a chief complaint of diarrhea onset 2 days. Patient states she was seen in this ED on 05/10/25 due to abdominal pain, diarrhea, nausea/vomiting, was diagnosed with gastroenteritis, was treated here, states symptoms improved for a few days. 2 days ago, she noticed diarrhea had wo rsened, has had 10 bowel movements since this morning. Patient had endoscopy done by gastrologist a month ago, was seen yesterday and told she has h. Pylori, was prescribed antibiotics, has not picked up prescription. Denies fever, chills, headache, dizziness, hematemesis, hematuria, dysuria. No other symptoms or modifying factors present at this time. Chief Complaint: Diarrhea Time Seen by MD: 18:20 Primary Care Provider: none Reviewed Notes: Medications, Allergies Allergies: Coded Allergies: NO KNOWN ALLERGIES (Unverified , 12/24/21) Home Meds Active Scripts Ondansetron Odt 4MG Tab (ZOFRAN PO) 4 Mg Tb, 4 MG PO Q8HP PRN for 5 Days, #15 TAB ODT TAB-DISSOLVE IN MOUTH, THEN SWALLOW Prov:BRINDA CORDERO MD 11/08/24 Pantoprazole Sodium Sesquihydr (Protonix) 40 Mg Tab, 40 MG PO DAILY for 30 Days, #30 TAB Prov:BRINDA CORDERO MD 11/08/24 Acetaminophen (Acetaminophen) 500 Mg Tab, 500 MG PO Q4HP PRN, #30 TAB Prov:VIOLETTE MONTE PAC 08/12/24 Ibuprofen Micronized (Ibuprofen) 800 Mg Tab, 800 MG PO Q8HP PRN, #30 TAB Prov:VIOLETTE MONTE PAC 08/12/24 Triamcinolone Acetonide (Triamcinolone Acetonide) 0.1 % Cre, 1 APPLIC EX DAILY for 5 Days, #60 CRE 0 Refills Prov:JOSSUE SHIRLEY NP 06/05/24 Prednisone (Prednisone) 20 Mg Tab, 40 MG PO DAILY for 5 Days, #10 TAB 0 Refills Prov:JOSSUE SHIRLEY NP 06/05/24 Sucralfate (Sucralfate) 1 Gm Tab, 1 GM PO BID for 15 Days, #30 TAB Prov:ALMA DELIA SANTA 04/18/24 Pantoprazole Sodium Sesquihydr (Protonix) 40 Mg Tab, 40 MG PO DAILY, #30 TAB Prov:ZENY HERNANDEZ MD 02/12/24 Ibuprofen (Ibuprofen) 800 Mg Tab, 1 TAB PO Q6HPRN PRN, #30 TAB 0 Refills Prov:RAYMUNDO MEJÍA 12/24/21 Information Source: Patient, Relative Mode of Arrival: Ambulatory Timing: Weeks Duration: Since onset Prehospital treatment: None Quality: Sharp Stool: Loose, Green Severity: Moderate Recent: None Recent Hx of: None Pain Location: Diffuse Modifying Factors: Nothing Associated sign and symptoms: Nausea, Vomiting, Diarrhea, Abdominal Pain Past Medical History PAST MEDICAL HISTORY: HTN Surgical History: EQUITY ANALYST History: Denies all EQUITY ANALYST Hx Family History Family History: Reviewed,noncontributory to illness, Unknown Social History Smoker: Non-Smoker Alcohol: Denies ETOH Use Drugs: Denies Drug Use Lives In: Home Constitutional: denies: chills, diaphoresis, fatigue, fever, malaise, sweats, weakness, others EENTM: denies: blurred vision, double vision, ear bleeding, ear discharge, ear drainage, ear pain, ear ringing, eye pain, eye redness, hearing loss, mouth pain, mouth swelling, nasal discharge, nose bleeding, nose congestion, nose pain, photophobia, tearing, throat pain, throat swelling, voice changes, others Respiratory: denies: cough, hemoptysis, orthopnea, SOB at rest, shortness of breath, SOB with excertion, stridor, wheezing, others Cardiovascular: denies: chest pain, dizzy spells, diaphoresis, Dyspnea on exertion, edema, irregular heart beat, left arm pain, lightheadedness, palpitations, PND, syncope, others Gastrointestinal: reports: abdominal pain, diarrhea, nausea, vomiting; denies: abdomen distended, blood streaked bowels, constipated, dysphagia, difficulty swallowing, hematemesis, melena, poor appetite, poor fluid intake, rectal bleeding, rectal pain, others Genitourinary: denies: abnormal vagina bleeding, burning, dyspareunia, dysuria, flank pain, frequency, hematuria, incontinence, pain, , vagina discharge, urgency, others Neurological: denies: dizziness, fainting, headache, left sided numbness, left sided weakness, numbness, paresthesia, pre-existing deficit, right sided numbness, right sided weakness, seizure, speech problems, tingling, tremors, weakness, others Musculoskeletal: denies: back pain, gout, joint pain, joint swelling, muscle pain, muscle stiffness, neck pain, others Integumetry: denies: bruises, change in color, change in hair/nails, dryness, laceration, lesions, lumps, rash, wounds, others Allergic/Immunocompromised: denies: Difficulty Healing, Frequent Infections, Hives, Itching, others Hematologic/Lymphatic: denies: anemia, blood clots, easy bleeding, easy bruising, swollen glands, others Endocrine: denies: excessive hunger, excessive sweating, excessive thirst, excessive urination, flushing, intolerance to cold, intolerance to heat, unexplained weight gain, unexplained weight loss, others Psychiatric: denies: anxiety, bipolar disorder, depression, hopeless, panic disorder, schizophrenia, sleepless, suicidal, others All Other Systems: Reviewed and Negative Physical Exam General Appearance: Normal HEENT: Normal ENT Inspection, Pharynx Normal, TMs Normal Neck: Full Range of Motion, Non-Tender, Normal, Normal Inspection Respiratory: Chest Non-Tender, Lungs Clear, No Accessory Muscle Use, No Respiratory Distress, Normal Breath Sounds Cardiovascular: No Edema, No JVD, No Murmur, No Gallop, Normal Peripheral Pul ses, Regular Rate/Rhythm Breast Exam: Deferred Gastrointestinal: Diffuse (tenderness), Normal Bowel Sounds, Tenderness (diffused) Genitalia: Deferred Pelvic: Deferred Rectal: Deferred Extremities: No calf tenderness, Normal capillary refill, Normal inspection, Normal range of motion, Non-tender, No pedal edema Musculoskeletal : Apperance: Normal Neurologic: Alert, a and p technician II-XII nml as Tested, No Motor Deficits, Normal Affect, Normal Mood, No Sensory Deficits Cerebellar Function: Normal Reflexes: Normal Skin: Dry, Normal Color, Warm Lymphatic: No Adenopathy Was a procedure done? Was a procedure done?: No GI differential Dx Differential Diagnosis: Gastritis/PUD, Gastroenteritis, GI hemorrhage X-Ray, Labs, Meds, VS Vital Signs Date Time Temp Pulse Resp B/P (MAP) Pulse Ox O2 Delivery O2 Flow Rate FiO2 05/17/25 17:25 97.9 111 20 132/76 98 97.9 X-Ray, Labs, Meds, VS Comment Patient states she had appointment with GI specialist yesterday, she was prescribed antibiotics for H pylori. States medications are at the pharmacy. Time of 1ST Reevaluation: 18:50 Reevaluation 1ST: Unchanged Patient Education/Counseling: Diagnosis, Treatment, Prognosis, Need For Follow Up (Follow up with PCP in next 2-3 days. Return emergency department if symptoms worsen.) Family Education/Counseling: Diagnosis, Treatment, Prognosis SEPSIS Sepsis Screen Date sepsis recognized/suspect: May 17, 2025 Time Sepsis recognized/suspect: 1726 Recent Procedure: No On Antibiotic Therapy: No Respiratory Rate >20: No Heart Rate >90: No Temp<36 C (96.8 F) or >38.3 C: No SBP <90 or MAP <65 mmHG: No New Acute Mental Status Change: No Is the patient on CPAP, BIPAP,: No Vital Signs Date Time Temp Pulse Resp B/P (MAP) Pulse Ox O2 Delivery O2 Flow Rate FiO2 05/17/25 17:25 97.9 111 20 132/76 98 97.9 Departure 1 Departure Time of Disposition: 18:54 Impression: Primary Impression: H pylori ulcer Additional Impression: Diarrhea Qualified Codes: A09 - Infectious gastroenteritis and colitis, unspecified Disposition: 01 HOME / SELF CARE / HOMELESS Condition: Stable e-Prescriptions Loperamide HCl (Loperamide HCl) 2 Mg Tab 2 MG PO TID PRN, #20 TAB Prov: ERNESTINA LEMONS 05/17/25 Discharged With: Self Critical Care Note Critical Care Time?: No Stability Stability form required: No Heart Score Heart Score: Heart Score Response (Comments) Value History N/A 0 EKG N/A 0 Age N/A 0 Risk Factors N/A 0 Troponin N/A 0 Total 0 I personally scribed for ERNESTINA LEMONS ([email or web address]) on 05/17/25 at 18:35. Electronically submitted by Sharla De Jesus ([email or web address]). ERNESTINA LEMONS May 17, 2025 18:35
[2025-05-17] MEDS ORDERED: DIPH2.5T73 PO (18:55)
[2025-05-17] MEDS ORDERED: LOPE1TAB9 PO (18:56)
== END 2025-05-17 20:32 | disposition home or self-care (01) ==
LOC: ER 17:23
DX: B96.81 Helicobacter pylori [H. pylori] as the cause of diseases classified elsewhere (principal); R19.7 Diarrhea, unspecified; I10 Essential (primary) hypertension; Z79.899 Other long term (current) drug therapy; Z79.52 Long term (current) use of systemic steroids

== ENCOUNTER 2025-06-09 08:54 | Day surgery (SDC) | payer MEDICAID ==
[2025-06-07 11:13] LABS: Hematocrit 36.2 % (36.0-46.0); Hemoglobin 12.5 g/dL (12.2-16.2); Mean Corpuscular Hemoglobin 30.8 pg (28.0-32.0); Mean Corpuscular Volume 89.0 fL (80.0-100.0); Nucleated Red Blood Cells % 0.1 %
[2025-06-07 11:16] LABS: Urine Protein, UAD Negative (Negative)
[2025-06-07 11:28] LABS: INR 1.0 (0.9-1.15); Partial Thromboplastin Time 27.3 SEC (24.5-34.5); Prothrombin Time 10.6 sec (9.3-11.8)
[2025-06-07 11:30] LABS: Alanine Aminotransferase 20 U/L (7-40); Alkaline Phosphatase 116 U/L (46-116); Anion Gap 10 (5-15); BUN/Creatinine Ratio 14.5 (10.0-20.0); Blood Urea Nitrogen 11 mg/dL (9-23); Calcium 9.6 mg/dL (8.7-10.4); Carbon Dioxide 28 mmol/L (20-31); Chloride 102 mmol/L (98-107); Glucose 85 mg/dL (74-106); Potassium 3.9 mmol/L (3.5-5.1); Sodium 140 mmol/L (136-145); Total Protein 7.9 g/dL (5.7-8.2)
[2025-06-07 11:31] LABS: Bilirubin, Total 0.6 mg/dL (0.2-1.0)
[2025-06-07 11:33] LABS: Albumin 5.0 g/dL (3.2-4.8)
[~2025-06-09 08:54] MED LIST changes: +AMLO1TAB23 PO; +DIPH2.5T73 PO; -IBUP-1455 PO; -IBUP-1456 PO; +LOPE1TAB9 PO; +LOSA-533 PO; -PRED20TA2 PO
[2025-06-09] MEDS ORDERED: ONDANSETRON HCL 4 MG/2 ML VIAL ONE (10:10)
[2025-06-09] MEDS ORDERED: PROPOFOL 10 MG/ML 20 ML IV ONE ×2 (10:10→10:21)
[2025-06-09] MEDS ORDERED: LIDOCAINE 1% INJ PF 5ML AMP ONE (10:10)
[2025-06-09 10:30] VITALS: PULSE 59; RESP 20; TEMP 97.6
--- NOTE | 2025-06-09 10:39 | DVHOP2 ---
Operative Report DATE OF OPERATION: 06/09/25 PROCEDURE: Diagnostic Colonoscopy. PREOPERATIVE INDICATION: The patient is a 49 -year-old female undergoing colonoscopy for colon cancer screening with history of abdominal pain POSTOPERATIVE DIAGNOSES: 1. Trace internal hemorrhoids otherwise completely normal colonoscopy ex amination up to the cecum and terminal ileum PROCEDURE PERFORMED BY: Sukumar Joy M.D. SCOPE: Olympus videocolonoscope. ASA CLASS: 2. PREOPERATIVE MEDICATIONS: Mac sedation, Cameron Edouard PROCEDURE IN DETAIL: After obtaining an informed consent, the patient was placed on left lateral decubitus position. She was then sedated with the above medications. A rectal examination was performed that was normal. The colonoscope was then passed through the anus into the rectosigmoid and through the descending, transverse, and ascending colon up to the cecum with visualization of the appendiceal orifice, base of the cecum and the ileocecal valve. The colonoscope was then withdrawn. The distal 3-5 cm of the terminal ileum were normal There were no polyps or masses. There was no colitis or diverticular disease. On retroflexion and straight on view patient had trace internal hemorrhoids. The patient tolerated the procedure well without difficulty. WITHDRAWAL TIME: 6 minutes QUALITY OF THE PREP: [place] Bowel Prep score: 9. COMPLICATIONS : None SPECIMENS: None DISPOSITION: Stable D/C to home PLAN: 1. Repeat colonoscopy in 10 years 2. Increase fluid and fiber intake 3. Outpatient follow up with me in 2-4 weeks to review results and discuss further management SUKUMAR JOY MD Jun 09, 2025 10:38
[2025-06-09 10:45] VITALS: PULSE 51; RESP 16
[2025-06-09 10:50] VITALS: BP 113/68; PULSE 57; O2SAT 99
[2025-06-09 11:00] VITALS: RESP 16
== END 2025-06-09 11:00 | disposition home or self-care (01) ==
LOC: GI 08:54
PROVIDERS: ATTEND Internal Medicine Gastroenterology
DX: R19.4 Change in bowel habit (principal); K64.8 Other hemorrhoids; E66.3 Overweight; I10 Essential (primary) hypertension; F41.9 Anxiety disorder, unspecified; Z98.890 Other specified postprocedural states; Z82.49 Family history of ischemic heart disease and other diseases of the circulatory system; Z83.3 Family history of diabetes mellitus; Z79.899 Other long term (current) drug therapy; Z87.11 Personal history of peptic ulcer disease; Z98.891 History of uterine scar from previous surgery
CPT/HCPCS: 36415; 45378; 80053; 81001; 81025; 85025; 85610; 85730; J2405; J2704; J7030